=== PATIENT | female | born 1940 | race Caucasian/White ===

== ENCOUNTER 2016-10-31 21:16 | Observation (INO) | payer OTHER ==
[~2016-10-31] VITALS: Ht 160 cm; Wt 74.8 kg
[~2016-10-31 21:16] MED LIST: APIX5TAB PO; CALC-316 PO; CARV25TA2 PO; CARV3.122 PO; CITA20TA5 PO; LEVO50TA PO; NICO1PAT21 TP; OMEG1CAP27 PO; OXYC10TA PO; OXYC10TA57 PO; OXYC15TA PO; OXYC30TA PO; POLY119P4 PO; [UNRECOGNIZED DRUG - CODE] IJ; [UNRECOGNIZED DRUG - CODE] PO
[2016-10-31] MEDS ORDERED: IV NORMAL SALINE 1000ML BAG 1,000 ML IV ONE (22:00)
[2016-10-31 22:08] LABS: BILIRUBIN,URINE NEGATIVE (NEG); GLUCOSE,URINE NEGATIVE (NEG); NITRITE,URINE NEGATIVE (NEG); PH,URINE 5.5; PROTEIN,URINE NEGATIVE (NEG-TRACE); UROBILINOGEN,URINE 0.2 mg/dL (0.2 mg/dL)
[2016-10-31 22:30] LABS: BASO % 1 % (0-3); EOS % 4 % (0-3); HEMATOCRIT 38.2 % (36.0-47.0); HEMOGLOBIN 12.4 g/dL (12.0-15.5); LYMPH # 2.2 x10^3/uL (1.0-4.8); LYMPH % 31 % (24-48); MEAN CORPUSCULAR HEMOGLOBIN 29 pg (25-35); MEAN CORPUSCULAR HGB CONC 33 g/dL (31-37); MEAN CORPUSCULAR VOLUME 88 fL (79-100); MONO % 9 % (0-9); NEUT % 55 % (31-73); PLATELET COUNT 147 x10^3/uL (140-400); RED BLOOD COUNT 4.33 x10^6/uL (3.50-5.40); RED CELL DISTRIBUTION WIDTH 15.4 % (11.5-14.5); WHITE BLOOD COUNT 7.2 x10^3/uL (4.0-11.0)
--- NOTE | 2016-10-31 22:37 | PHYS DOC ---
Past Medical History Past Medical History: A-Fib, COPD, UTI Additional Past Medical Histor: CHRONIC BACK PAIN Past Surgical History: Hysterectomy, Other Additional Past Surgical Histo: hernia Alcohol Use: None Drug Use: None Adult General Chief Complaint Chief Complaint: ALTERED MENTAL STATUS HPI HPI Patient is a 76 year old F who presents with altered mental status. Patient was brought in by her daughter who went over to her house around 3 PM this afternoon and she was altered with increased somnolence. Daughter states this happened before when she had a UTI and wear kidney function becomes elevated. Patient does take narcotic pain medication but has no history of overdosing is not suicidal. Daughter denies any fevers, nausea/vomiting/diarrhea. Pertinent exam findings: Somnolent but arousable, pupils are 2 mm bilaterally Heart was regular rhythm without any murmurs Lungs are clear to auscultation bilaterally without crackles wheeze or rales ED course: Patient was seen and examined CBC, CMP, UA, and urine drug screen CT scan of the head were ordered 2330: Patient was given 0.4 million of Narcan in which she started becoming more arousable 2340: Explain to the family that we'll admit her for altered mental status and the daughters comfortable this plan 2357: Discussed CC/HP/PMH with Dr. Silveira and recommends admit [] Urgent results: CBC unremarkable BUNs [address] scan of the head without contrast NAD MDM: After reviewing the chart, CC/HPI/PMH, physical exam, [lab results], [ radiological results], I do not believe the patient has acute intracranial process can chipping to her altered mental status. I've concerned that the patient's altered mental status could be secondary to her narcotic use at home since she responded fairly well to Narcan. Patient be admitted for observation and further evaluation. Review of Systems Review of Systems Unable to obtain a review of systems secondary to patient's clinical condition of altered mental status Current Medications Current Medications Current Medications Medications (Trade) Dose Ordered Sig/Kervin Start Time Stop Time Status Last Admin Dose Admin Naloxone HCl (Narcan) 0.4 mg 1X ONCE 10/31/16 23:30 10/31/16 23:31 DC 10/31/16 23:26 0.4 MG Sodium Chloride 1,000 ml @ 1,000 mls/hr 1X ONCE 10/31/16 22:00 10/31/16 22:59 DC 10/31/16 22:50 1,000 MLS/HR Allergies Allergies Allergies Coded Allergies Type Severity Reaction Last Updated Verified ciprofloxacin Allergy Intermediate 07/02/15 Yes codeine Allergy Intermediate 07/02/15 Yes Physical Exam Physical Exam GEN.: Somnolent but arousable HEENT: Head is normocephalic, atraumatic, he pulls were 2 mm bilaterally NECK: Supple. LUNGS: CTAB. HEART: RRR, S1, S2 present. Peripheral pulses intact ABDOMEN: Soft, nontender. Positive bowel sounds. EXTREMITIES: Without any cyanosis. NEUROLOGIC: Cranial nerves II through XII are grossly intact without any focal neurologic deficits PSYCHIATRIC: Confused SKIN: No ulcerations Current Patient Data Vital Signs Vital Signs Date Time Temp Pulse Resp B/P (MAP) Pulse Ox O2 Delivery O2 Flow Rate FiO2 10/31/16 21:33 97.5 75 22 117/64 (81) Room Air 97.5 Lab Values Laboratory Tests Test 10/31/16 21:55 10/31/16 22:16 Urine Collection Type Unknown Urine Color Yellow Urine Clarity Clear Urine pH 5.5 Urine Specific [place] 1.020 Urine Protein Negative mg/dL (NEG-TRACE) Urine Glucose (UA) Negative mg/dL (NEG) Urine Ketones (Stick) Negative mg/dL (NEG) Urine Blood Negative (NEG) Urine Nitrite Negative (NEG) Urine Bilirubin Negative (NEG) Urine Urobilinogen Dipstick 0.2 mg/dL (0.2 mg/dL) Urine Leukocyte Esterase Negative (NEG) Urine RBC Occ /HPF (0-2) Urine WBC Occ /HPF (0-4) Urine Squamous Epithelial Cells Many /LPF Urine Bacteria Few /HPF (0-FEW) Urine Hyaline Casts Moderate /HPF Urine Opiates Screen Pos (NEG) Urine Methadone Screen Neg (NEG) Urine Barbiturates Neg (NEG) Urine Phencyclidine Screen Neg (NEG) Urine Amphetamine/Methamphetamine Neg (NEG) Urine Benzodiazepines Screen Neg (NEG) Urine Cocaine Screen Neg (NEG) Urine Cannabinoids Screen Neg (NEG) Urine Ethyl Alcohol Neg (NEG) White Blood Count 7.2 x10^3/uL (4.0-11.0) Red Blood Count 4.33 x10^6/uL (3.50-5.40) Hemoglobin 12.4 g/dL (12.0-15.5) Hematocrit 38.2 % (36.0-47.0) Mean Corpuscular Volume 88 fL (79-100) Mean Corpuscular Hemoglobin 29 pg (25-35) Mean Corpuscular Hemoglobin Concent 33 g/dL (31-37) Red Cell Distribution Width 15.4 % (11.5-14.5) H Platelet Count 147 x10^3/uL (140-400) Neutrophils (%) (Auto) 55 % (31-73) Lymphocytes (%) (Auto) 31 % (24-48) Monocytes (%) (Auto) 9 % (0-9) Eosinophils (%) (Auto) 4 % (0-3) H Basophils (%) (Auto) 1 % (0-3) Neutrophils # (Auto) 4.0 x10^3uL (1.8-7.7) Lymphocytes # (Auto) 2.2 x10^3/uL (1.0-4.8) Monocytes # (Auto) 0.7 x10^3/uL (0.0-1.1) Eosinophils # (Auto) 0.3 x10^3/uL (0.0-0.7) Basophils # (Auto) 0.0 x10^3/uL (0.0-0.2) Sodium Level 142 mmol/L (136-145) Potassium Level 4.1 mmol/L (3.5-5.1) Chloride Level 105 mmol/L (98-107) Carbon Dioxide Level 27 mmol/L (21-32) Anion Gap 10 (6-14) Blood Urea Nitrogen 39 mg/dL (7-20) H Creatinine 1.4 mg/dL (0.6-1.0) H Estimated GFR (Cockcroft-Gault) 36.8 BUN/Creatinine Ratio 28 (6-20) H Glucose Level 103 mg/dL (70-99) H Lactic Acid Level 0.9 mmol/L (0.4-2.0) Calcium Level 8.6 mg/dL (8.5-10.1) Total Bilirubin 0.3 mg/dL (0.2-1.0) Aspartate Amino Transferase (AST) 22 U/L (15-37) Alanine Aminotransferase (ALT) 19 U/L (14-59) Alkaline Phosphatase 69 U/L (46-116) Troponin I Quantitative < 0.017 ng/mL (0.000-0.055) Total Protein 7.0 g/dL (6.4-8.2) Albumin 3.6 g/dL (3.4-5.0) Albumin/Globulin Ratio 1.1 (1.0-1.7) Lipase 57 U/L (73-393) L Ethyl Alcohol Level < 10 mg/dL (0-10) Laboratory Tests 10/31/16 22:16 Laboratory Tests 10/31/16 22:16 EKG EKG EKG shows normal sinus rhythm rate of 71 no STEMI [] Radiology/Procedures Radiology/Procedures CT scan ahead without contrast NAD[] Course & Med Decision Making Course & Med Decision Making Pertinent Labs and Imaging studies reviewed. (See chart for details) [] Dragon Disclaimer Dragon Disclaimer This electronic medical record was generated, in whole or in part, using a voice recognition dictation system. Departure Departure Impression: Primary Impression: Altered mental status Additional Impression: Accidental overdose Disposition: 09 ADMITTED INPATIENT Admitting Physician: Rm Silveira Condition: STABLE Referrals: MERCED ALONZO MD (PCP) Problem Qualifiers Primary Impression: Altered mental status Altered mental status type: somnolence Qualified Codes: R40.0 - Somnolence Additional Impression: Accidental overdose Encounter type: initial encounter Qualified Codes: T50.901A - Poisoning by unspecified drugs, medicaments and biological substances, accidental ( unintentional), initial encounter ANJU ANGEL DO Oct 31, 2016 22:37
--- NOTE | 2016-10-31 22:44 | RAD ---
CT HEAD PQRS STATEMENT: One or more of the following in the visualized dose reduction techniques were utilized for this study: 1. Automatic exposure control, 2. Adjustment of the mA and/or kV according to patient size, 3. Use of iterative reconstruction technique INDICATION: AMS, PRIOR SENT COMPARISON: 02/02/2016 TECHNIQUE: 5 mm contiguous axial images were obtained from the skull base to the vertex in both bone and soft tissue algorithm. FINDINGS: No abnormal attenuation within the brain parenchyma. No evidence of intracranial hemorrhage. No extra-axial fluid collections. No mass effect or midline shift. Ventricular size is appropriate. Basal cisterns are patent. No fractures identified.Jones-white differentiation is preserved.Globes and orbits are within normal limits. Paranasal sinuses and mastoid air cells are clear. IMPRESSION: No acute intracranial abnormality. Electronically signed by: Jarocho Lockwood MD (10/31/2016 10:41 PM)
[2016-10-31 22:46] LABS: CALCIUM 8.6 mg/dL (8.5-10.1); CREATININE 1.4 mg/dL (0.6-1.0); GFR 36.8; POTASSIUM 4.1 mmol/L (3.5-5.1)
[2016-10-31 22:47] LABS: RBC,URINE OCC /HPF (0-2); WBC,URINE OCC /HPF (0-4)
[2016-10-31 22:48] LABS: BACTERIA,URINE FEW /HPF (0-FEW); SQUAMOUS EPITHELIAL CELL,UR MANY /LPF
[2016-10-31 23:01] LABS: ALBUMIN 3.6 g/dL (3.4-5.0); ALBUMIN/GLOBULIN RATIO 1.1 (1.0-1.7); TOTAL BILIRUBIN 0.3 mg/dL (0.2-1.0)
[2016-10-31 23:01] LABS: BARBITURATES NEG (NEG); BENZODIAZEPINES NEG (NEG); CANNABINOIDS NEG (NEG); COCAINE NEG (NEG); METHADONE NEG (NEG); OPIATES POS (NEG); PHENCYCLIDINE NEG (NEG)
[2016-10-31] MEDS ORDERED: NALOXONE 0.4 MG/ML VIAL. IV ONE (23:30)
[2016-11-01] VITALS (7 sets, daily range): BP systolic 116–149; BP diastolic 55–77
[2016-11-01] MEDS: IV NORMAL SALINE 1000ML BAG 1,000 ML IV SCH ×3 (01:52→17:52)
[2016-11-01] MEDS ORDERED: ONDANSETRON PF 4 MG/2 ML VIAL. IV PRN (02:00)
--- NOTE | 2016-11-01 08:19 | PDOC ---
GENERAL General: see dictated H&P. Problems: VITAL SIGNS Vital Signs: Vital Signs Date Time Temp Pulse Resp B/P (MAP) Pulse Ox O2 Delivery O2 Flow Rate FiO2 11/01/16 07:33 97.9 70 20 116/58 (77) 94 Room Air 97.9 11/01/16 03:14 2.0 I & O I & O Intake and Output 11/01/16 07:00 Intake Total 120 ml Balance 120 ml Intake Oral 120 ml ALLERGIES Allergies: Allergies Coded Allergies Type Severity Reaction Last Updated Verified ciprofloxacin Allergy Intermediate 07/02/15 Yes codeine Allergy Intermediate 07/02/15 Yes MEDS Medications: Current Medications Medications (Trade) Dose Ordered Sig/Kervin Start Time Stop Time Status Last Admin Dose Admin Acetaminophen (Tylenol) 650 mg PRN Q4HRS PRN 11/01/16 02:00 11/02/16 01:59 Naloxone HCl (Narcan) 0.4 mg 1X ONCE 10/31/16 23:30 10/31/16 23:31 DC 10/31/16 23:26 0.4 MG Ondansetron HCl (Zofran) 4 mg PRN Q8HRS PRN 11/01/16 02:00 11/02/16 01:59 Sodium Chloride 1,000 ml @ 125 mls/hr Q8H 11/01/16 01:52 11/02/16 01:51 11/01/16 01:52 125 MLS/HR LAB Lab: Laboratory Tests Test 10/31/16 21:55 10/31/16 22:16 Urine Collection Type Unknown Urine Color Yellow Urine Clarity Clear Urine pH 5.5 Urine Specific [place] 1.020 Urine Protein Negative mg/dL (NEG-TRACE) Urine Glucose (UA) Negative mg/dL (NEG) Urine Ketones (Stick) Negative mg/dL (NEG) Urine Blood Negative (NEG) Urine Nitrite Negative (NEG) Urine Bilirubin Negative (NEG) Urine Urobilinogen Dipstick 0.2 mg/dL (0.2 mg/dL) Urine Leukocyte Esterase Negative (NEG) Urine RBC Occ /HPF (0-2) Urine WBC Occ /HPF (0-4) Urine Squamous Epithelial Cells Many /LPF Urine Bacteria Few /HPF (0-FEW) Urine Hyaline Casts Moderate /HPF Urine Opiates Screen Pos (NEG) Urine Methadone Screen Neg (NEG) Urine Barbiturates Neg (NEG) Urine Phencyclidine Screen Neg (NEG) Urine Amphetamine/Methamphetamine Neg (NEG) Urine Benzodiazepines Screen Neg (NEG) Urine Cocaine Screen Neg (NEG) Urine Cannabinoids Screen Neg (NEG) Urine Ethyl Alcohol Neg (NEG) White Blood Count 7.2 x10^3/uL (4.0-11.0) Red Blood Count 4.33 x10^6/uL (3.50-5.40) Hemoglobin 12.4 g/dL (12.0-15.5) Hematocrit 38.2 % (36.0-47.0) Mean Corpuscular Volume 88 fL (79-100) Mean Corpuscular Hemoglobin 29 pg (25-35) Mean Corpuscular Hemoglobin Concent 33 g/dL (31-37) Red Cell Distribution Width 15.4 % (11.5-14.5) Platelet Count 147 x10^3/uL (140-400) Neutrophils (%) (Auto) 55 % (31-73) Lymphocytes (%) (Auto) 31 % (24-48) Monocytes (%) (Auto) 9 % (0-9) Eosinophils (%) (Auto) 4 % (0-3) Basophils (%) (Auto) 1 % (0-3) Neutrophils # (Auto) 4.0 x10^3uL (1.8-7.7) Lymphocytes # (Auto) 2.2 x10^3/uL (1.0-4.8) Monocytes # (Auto) 0.7 x10^3/uL (0.0-1.1) Eosinophils # (Auto) 0.3 x10^3/uL (0.0-0.7) Basophils # (Auto) 0.0 x10^3/uL (0.0-0.2) Sodium Level 142 mmol/L (136-145) Potassium Level 4.1 mmol/L (3.5-5.1) Chloride Level 105 mmol/L (98-107) Carbon Dioxide Level 27 mmol/L (21-32) Anion Gap 10 (6-14) Blood Urea Nitrogen 39 mg/dL (7-20) Creatinine 1.4 mg/dL (0.6-1.0) Estimated GFR (Cockcroft-Gault) 36.8 BUN/Creatinine Ratio 28 (6-20) Glucose Level 103 mg/dL (70-99) Lactic Acid Level 0.9 mmol/L (0.4-2.0) Calcium Level 8.6 mg/dL (8.5-10.1) Total Bilirubin 0.3 mg/dL (0.2-1.0) Aspartate Amino Transf (AST/SGOT) 22 U/L (15-37) Alanine Aminotransferase (ALT/SGPT) 19 U/L (14-59) Alkaline Phosphatase 69 U/L (46-116) Troponin I Quantitative < 0.017 ng/mL (0.000-0.055) Total Protein 7.0 g/dL (6.4-8.2) Albumin 3.6 g/dL (3.4-5.0) Albumin/Globulin Ratio 1.1 (1.0-1.7) Lipase 57 U/L (73-393) Ethyl Alcohol Level < 10 mg/dL (0-10) ROMÁN EDWARDS MD Nov 01, 2016 08:19
[2016-11-01 09:00] LABS: PH ABG 7.39 (7.35-7.45)
[2016-11-01 09:01] LABS: FIO2 ABG 28; HCO3 ABG 24 mmol/L (21-28); PCO2 ABG 41 mmHg (35-46); PO2 ABG 113 mmHg (65-108)
--- NOTE | 2016-11-01 09:01 | ACF ---
Admit Criteria Forms Admit Criteria Forms Admit Criteria Forms MENTAL STATUS CHANGE Clinical Indications for Inpatient Care (Place 'X' for any and all applicable criteria): Ongoing inpatient care may be needed for 1 or more of the following(1)(2)(3)(5)( 6): [ ]I. Suspected serious etiology (eg, medical disorder, [employer] event) of altered mental status [ ]II. Danger to self or others not manageable at lower level of care [ ]III. Grave disability (eg, inability to perform self care necessary at lower level of care) [ ]IV. Agitation or inappropriate behavior interfering with care for primary condition (eg, attempting to discontinue lines or drains prematurely, unable to cooperate with respiratory care) [ ]V. Delirium [A] [D][E] as described by 1 or more of the following(26): [ ]a) Delirium due to alcohol or sedative [F] withdrawal [ ]b) Delirium of uncertain etiology that has not responded to appropriate empiric treatment [ ]c) Delirium that prevents performance of a life-sustaining function (eg, feeding or hydrating oneself) [X]. General contraindications and/or Inappropriate clinical situations for Observational Care in patients with Mental Status Change, when ANY ONE of the following is required: [X]a) Prediction of prolongation of LOS based on ANY ONE of the following may be considered as a contraindication for observational care 2, 3, 4, 5, 6, 7, 8, 9, 10, 11 [X]i) Age > 65 yrs. [ ]ii) Patient arriving by ambulance [ ]iii) Patient with high acuity [X]iv) Patient requiring vital sign monitoring [ ]v) Patient on IV medication [ ]b) Systolic blood pressures greater than or equal to 180mmHg 3, 12 [ ]c) Patient with altered mental status including delirium and other alteration of consciousness, (3) [ ]d) Patient whose discharge disposition will be to a usp home or rehabilitation home should not be managed in Emergency Department Observation Unit. CMS rule requires 3 days hospital stay before such placement.3,13 [ ]e) Patient with failure to thrive due to broad array of etiologies 3,16,17 [ ]f) Inability to ambulate 3,14 Extended stay beyond goal length of stay for the primary condition may be needed until ALL of the following are present(3)(5): [ ]a) Underlying medical etiology of mental status change is absent, or has been established and adequately treated [ ]b) Danger to self or others is absent or manageable at lower level of care. [ ]c) Behavior crisis management, including physical or chemical restraints, is not required or available at lower level of car [ ]d) Substance or alcohol withdrawal is absent or manageable at lower level of care. [ ]e) Behavioral symptoms (eg, agitation, somnolence, inappropriate behavior) are absent, or are manageable at lower level of care. The original [facility] [employer] content created by [facility] has been revised. The portions of the content which have been revised are identified through the use of italic text or in bold, and [facility] has neither reviewed nor approved the modified material. All other unmodified content is copyright [facility]. Please see references footnoted in the original [facility] [employer] edition 2016 YOMI KEBEDE Nov 01, 2016 09:01
[2016-11-01] MEDS ORDERED: POLYETHYLENE GLYCOL 3350 17 GM PACKET. PO PRN (12:30)
--- NOTE | 2016-11-01 16:28 | PDOC2 ---
NEUROLOGY CONSULT Date of Admission Date of Admission DATE: 11/01/16 TIME: 16:19 Reason for Consult Reason for Consult: IMPRESSION: Confusion. Metabolic encephalopathy. AFib COPD UTI Back pain. Other medical diseases. RECOMMENDATIONS/PLAN: EEG Lab: see orders. Avoid narcotics as possible. HCT: No acute findings. HISTORY OF THE PRESENT ILLNESS: 76-y-old female patient with above medical disease was brought to the ER of [facility] on 10/31/16 after noted mental status changes and sleepiness and not response to her daughter. Her son stated that his mother has been sleeping on daytime more than before. The patient stated that she knew her daughter was checking on her but she was so sleeping so she did not want to respond. No focalized sensory or motor deficits noted. PAST MEDICAL HISTORY: Please see above. PAST SURGERY HISTORY: Hysterectomy Hernia Repair ALLERGY: Reviewed. MEDICATIONS: Refer to [facility] FAMILY HISTORY: Non contributory. SOCIAL HISTORY: Lives at home. Denies smoking, drinking, and illicit drug use. REVIEW OF SYSTEMS: Constitutional: No malnutrition, or cachexia. Head: No recent traumatic brain or head injury. Skin: No edema, or rash. Ear: No infection, tinnitus. Eyes: No vision loss or color blindness. Nose: No bleeding or purulent discharges. Hearing: No hearing decrease. Neck: No injury. Breast: No history of cancer, masses,or discharges. Cardiac: AFib. Pulmonary: COPD. GI: No GI ulcer, GI bleeding. Urinary/genital: UTI. Endocrinologic: No cousin face, craniofacial dysmorphism, polydactyly. Skeletomuscular: No muscular atrophy, deformity. Neurological: see HP. Psychiatric: Denies drug use/abuse. Otherwise, not [id number] review of systems. PHYSICAL EXAMINATION: General appearance is in no acute distress. HEENT: Normocephalic and nontraumatic. Eyes, nose, ears, and throat are unremarkable. Neck is supple. No lymphadenopathy. No bruits are heard over the carotid artery. No crepitus. Cardiovascular: S1, S2, regular rate and rhythm. Pulmonary: Clear to auscultation bilaterally. Abdomen: Bowel sounds are positive. Abdomen is soft, nontender, and nondistended. Extremities: No rash, lesions, or edema. No restriction of range of motion NEUROLOGICAL EXAMINATION: Awake. Oriented to place and person. PERRL. EOMI. CN: no focal findings. Muscle tone: within normal. Muscle strength: 5- DTR: 2 Plantar reflex: Neutral response bilaterally Gait: not examined in bed. Sensory exam: no abnormal findings. No cerebellar signs elicited. F-T-N test fine. Current Medications Current Medications Current Medications Sodium Chloride 1,000 ml @ 1,000 mls/hr 1X ONCE IV Last administered on 22:50; Start 10/31/16 at 22:00; Stop 10/31/16 at 22:59; Status DC Naloxone HCl (Narcan) 0.4 mg 1X ONCE IV Last administered on 10/31/16 23:26; Start 10/31/16 at 23:30; Stop 10/31/16 at 23:31; Status DC Ondansetron HCl (Zofran) 4 mg PRN Q8HRS PRN IV NAUSEA/VOMITING; Start 11/01/16 at 02:00; Stop 11/02/16 at 01:59 Sodium Chloride 1,000 ml @ 125 mls/hr Q8H IV Last administered on 11/01/16 01 :52; Start 11/01/16 at 01:52; Stop 11/02/16 at 01:51 Acetaminophen (Tylenol) 650 mg PRN Q4HRS PRN PO FEVER; Start 11/01/16 at 02:00 ; Stop 11/02/16 at 01:59 Polyethylene Glycol (miraLAX PACKET) 17 gm PRN DAILY PRN PO CONSTIPATION; Start 11/01/16 at 12:30 Active Scripts Active Miralax (Polyethylene Glycol 3350) 119 Gm Powder 17 Gm PO DAILY Reported NICODERM CQ 21mg (Nicotine) 1 Each Patch.td24 1 Patch TP DAILY Synthroid (Levothyroxine Sodium) 50 Mcg Tablet 1 Tab PO DAILY Oxycodone Hcl 15 Mg Tablet 15 Mg PO BID PRN NOT GIVEN ON THIS ADMISSION ONLY TAKE TWICE A DAY NEEDED FOR PAIN THAT THE MORPHINE DOES NOT CONTROL Carvedilol 3.125 Mg Tablet 1 Tab PO BID LAST DOSE GIVEN: DATE: Today at 12pm NEXT DOSE DUE: Tonight with dinner Calcarb 600 W-Vitamin D Tab (Calcium Carbonate/Vitamin D3) 1 Each Tablet 1 Each PO BID LAST DOSE GIVEN: DATE: Today at 08:30 NEXT DOSE DUE: tonight with dinner Eliquis (Apixaban) 5 Mg Tablet 5 Mg PO BID LAST DOSE GIVEN: DATE: Today at 12pm NEXT DOSE DUE: Tonight Fish Oil 1,000 Mg Softgel (Citra-3 Fatty Acids/Fish Oil) 1 Each Capsule 2 Each PO BID LAST DOSE GIVEN: This morning NEXT DOSE DUE: Take this evening Citalopram Hbr (Citalopram Hydrobromide) 20 Mg Tablet 20 Mg PO BID LAST DOSE GIVEN: This morning NEXT DOSE DUE: Tonight Allergies Allergies: Coded Allergies: ciprofloxacin (Verified Allergy, Intermediate, 07/02/15) codeine (Verified Allergy, Intermediate, 07/02/15) Patient on Oxycodone with no reaction. Reaction only to Codeine. Vitals VITALS Vital Signs Date Time Temp Pulse Resp B/P (MAP) Pulse Ox O2 Delivery O2 Flow Rate FiO2 11/01/16 14:51 97.1 65 20 128/70 (89) 97 Room Air 97.1 11/01/16 08:40 2.0 Labs Labs Laboratory Tests Test 10/31/16 21:55 10/31/16 22:16 11/01/16 08:45 11/01/16 13:35 Urine Collection Type Unknown Urine Color Yellow Urine Clarity Clear Urine pH 5.5 Urine Specific [place] 1.020 Urine Protein Negative mg/dL (NEG-TRACE) Urine Glucose (UA) Negative mg/dL (NEG) Urine Ketones (Stick) Negative mg/dL (NEG) Urine Blood Negative (NEG) Urine Nitrite Negative (NEG) Urine Bilirubin Negative (NEG) Urine Urobilinogen Dipstick 0.2 mg/dL (0.2 mg/dL) Urine Leukocyte Esterase Negative (NEG) Urine RBC Occ /HPF (0-2) Urine WBC Occ /HPF (0-4) Urine Squamous Epithelial Cells Many /LPF Urine Bacteria Few /HPF (0-FEW) Urine Hyaline Casts Moderate /HPF Urine Opiates Screen Pos (NEG) Urine Methadone Screen Neg (NEG) Urine Barbiturates Neg (NEG) Urine Phencyclidine Screen Neg (NEG) Urine Amphetamine/Methamphetamine Neg (NEG) Urine Benzodiazepines Screen Neg (NEG) Urine Cocaine Screen Neg (NEG) Urine Cannabinoids Screen Neg (NEG) Urine Ethyl Alcohol Neg (NEG) White Blood Count 7.2 x10^3/uL (4.0-11.0) Red Blood Count 4.33 x10^6/uL (3.50-5.40) Hemoglobin 12.4 g/dL (12.0-15.5) Hematocrit 38.2 % (36.0-47.0) Mean Corpuscular Volume 88 fL (79-100) Mean Corpuscular Hemoglobin 29 pg (25-35) Mean Corpuscular Hemoglobin Concent 33 g/dL (31-37) Red Cell Distribution Width 15.4 % (11.5-14.5) Platelet Count 147 x10^3/uL (140-400) Neutrophils (%) (Auto) 55 % (31-73) Lymphocytes (%) (Auto) 31 % (24-48) Monocytes (%) (Auto) 9 % (0-9) Eosinophils (%) (Auto) 4 % (0-3) Basophils (%) (Auto) 1 % (0-3) Neutrophils # (Auto) 4.0 x10^3uL (1.8-7.7) Lymphocytes # (Auto) 2.2 x10^3/uL (1.0-4.8) Monocytes # (Auto) 0.7 x10^3/uL (0.0-1.1) Eosinophils # (Auto) 0.3 x10^3/uL (0.0-0.7) Basophils # (Auto) 0.0 x10^3/uL (0.0-0.2) Sodium Level 142 mmol/L (136-145) Potassium Level 4.1 mmol/L (3.5-5.1) Chloride Level 105 mmol/L (98-107) Carbon Dioxide Level 27 mmol/L (21-32) Anion Gap 10 (6-14) Blood Urea Nitrogen 39 mg/dL (7-20) Creatinine 1.4 mg/dL (0.6-1.0) Estimated GFR (Cockcroft-Gault) 36.8 BUN/Creatinine Ratio 28 (6-20) Glucose Level 103 mg/dL (70-99) Lactic Acid Level 0.9 mmol/L (0.4-2.0) Calcium Level 8.6 mg/dL (8.5-10.1) Total Bilirubin 0.3 mg/dL (0.2-1.0) Aspartate Amino Transf (AST/SGOT) 22 U/L (15-37) Alanine Aminotransferase (ALT/SGPT) 19 U/L (14-59) Alkaline Phosphatase 69 U/L (46-116) Troponin I Quantitative < 0.017 ng/mL (0.000-0.055) Total Protein 7.0 g/dL (6.4-8.2) Albumin 3.6 g/dL (3.4-5.0) Albumin/Globulin Ratio 1.1 (1.0-1.7) Lipase 57 U/L (73-393) Ethyl Alcohol Level < 10 mg/dL (0-10) Arterial Blood pH 7.39 (7.35-7.45) Arterial Blood pCO2 at Patient Temp 41 mmHg (35-46) Arterial Blood pO2 at Patient Temp 113 mmHg (65-108) Arterial Blood HCO3 24 mmol/L (21-28) Arterial Blood Base Excess -1 mmol/L (-3-3) FiO2 28 Vitamin B12 Level 275 pg/mL (247-911) Thyroid Stimulating Hormone (TSH) 0.915 uIU/mL (0.358-3.74) Laboratory Tests Test 10/31/16 21:55 10/31/16 22:16 11/01/16 08:45 11/01/16 13:35 Urine Collection Type Unknown Urine Color Yellow Urine Clarity Clear Urine pH 5.5 Urine Specific [place] 1.020 Urine Protein Negative mg/dL (NEG-TRACE) Urine Glucose (UA) Negative mg/dL (NEG) Urine Ketones (Stick) Negative mg/dL (NEG) Urine Blood Negative (NEG) Urine Nitrite Negative (NEG) Urine Bilirubin Negative (NEG) Urine Urobilinogen Dipstick 0.2 mg/dL (0.2 mg/dL) Urine Leukocyte Esterase Negative (NEG) Urine RBC Occ /HPF (0-2) Urine WBC Occ /HPF (0-4) Urine Squamous Epithelial Cells Many /LPF Urine Bacteria Few /HPF (0-FEW) Urine Hyaline Casts Moderate /HPF Urine Opiates Screen Pos (NEG) Urine Methadone Screen Neg (NEG) Urine Barbiturates Neg (NEG) Urine Phencyclidine Screen Neg (NEG) Urine Amphetamine/Methamphetamine Neg (NEG) Urine Benzodiazepines Screen Neg (NEG) Urine Cocaine Screen Neg (NEG) Urine Cannabinoids Screen Neg (NEG) Urine Ethyl Alcohol Neg (NEG) White Blood Count 7.2 x10^3/uL (4.0-11.0) Red Blood Count 4.33 x10^6/uL (3.50-5.40) Hemoglobin 12.4 g/dL (12.0-15.5) Hematocrit 38.2 % (36.0-47.0) Mean Corpuscular Volume 88 fL (79-100) Mean Corpuscular Hemoglobin 29 pg (25-35) Mean Corpuscular Hemoglobin Concent 33 g/dL (31-37) Red Cell Distribution Width 15.4 % (11.5-14.5) Platelet Count 147 x10^3/uL (140-400) Neutrophils (%) (Auto) 55 % (31-73) Lymphocytes (%) (Auto) 31 % (24-48) Monocytes (%) (Auto) 9 % (0-9) Eosinophils (%) (Auto) 4 % (0-3) Basophils (%) (Auto) 1 % (0-3) Neutrophils # (Auto) 4.0 x10^3uL (1.8-7.7) Lymphocytes # (Auto) 2.2 x10^3/uL (1.0-4.8) Monocytes # (Auto) 0.7 x10^3/uL (0.0-1.1) Eosinophils # (Auto) 0.3 x10^3/uL (0.0-0.7) Basophils # (Auto) 0.0 x10^3/uL (0.0-0.2) Sodium Level 142 mmol/L (136-145) Potassium Level 4.1 mmol/L (3.5-5.1) Chloride Level 105 mmol/L (98-107) Carbon Dioxide Level 27 mmol/L (21-32) Anion Gap 10 (6-14) Blood Urea Nitrogen 39 mg/dL (7-20) Creatinine 1.4 mg/dL (0.6-1.0) Estimated GFR (Cockcroft-Gault) 36.8 BUN/Creatinine Ratio 28 (6-20) Glucose Level 103 mg/dL (70-99) Lactic Acid Level 0.9 mmol/L (0.4-2.0) Calcium Level 8.6 mg/dL (8.5-10.1) Total Bilirubin 0.3 mg/dL (0.2-1.0) Aspartate Amino Transf (AST/SGOT) 22 U/L (15-37) Alanine Aminotransferase (ALT/SGPT) 19 U/L (14-59) Alkaline Phosphatase 69 U/L (46-116) Troponin I Quantitative < 0.017 ng/mL (0.000-0.055) Total Protein 7.0 g/dL (6.4-8.2) Albumin 3.6 g/dL (3.4-5.0) Albumin/Globulin Ratio 1.1 (1.0-1.7) Lipase 57 U/L (73-393) Ethyl Alcohol Level < 10 mg/dL (0-10) Arterial Blood pH 7.39 (7.35-7.45) Arterial Blood pCO2 at Patient Temp 41 mmHg (35-46) Arterial Blood pO2 at Patient Temp 113 mmHg (65-108) Arterial Blood HCO3 24 mmol/L (21-28) Arterial Blood Base Excess -1 mmol/L (-3-3) FiO2 28 Vitamin B12 Level 275 pg/mL (247-911) Thyroid Stimulating Hormone (TSH) 0.915 uIU/mL (0.358-3.74) EUGENIO RODRIGUEZ MD Nov 01, 2016 16:28
[2016-11-01] MEDS: ACETAMINOPHEN 325 MG TABLET. PO PRN ×2 (18:13→23:01)
[2016-11-02 03:06] VITALS: BP 160/71
[2016-11-02 07:45] VITALS: BP 161/87
--- NOTE | 2016-11-02 08:10 | HP ---
ADMIT DATE: CHIEF COMPLAINT AND HISTORY OF PRESENT ILLNESS: This 76-year-old white female known to me from prior hospitalizations. She is primarily followed by Dr. Cheema in the office. She presented to the Emergency Room with altered mental status on the day of admission. Daughter ____ see her on the day of admission, found her with increased somnolence, not making sense, unable to ____ make her awake. The daughter related a prior episode with UTI being suggestive of similar symptoms. The patient is unable to provide history, but daughter has not seen any nausea, vomiting, diarrhea. Abuse of her home opiates, which she takes for pain. Mother has not been complaining of any urinary tract symptoms leading up to this or anorexia, shortness of breath, cough, etc. PAST MEDICAL HISTORY: Remarkable for severe COPD, UTIs, history of AFib. She has chronic back pain. PAST SURGICAL HISTORY: Including hysterectomy and hernia repair. ALLERGIES: INCLUDE CIPRO AND CODEINE. MEDICATIONS: Brought with the patient, listed on the computer and have been addressed. SOCIAL HISTORY: She is a smoker, nondrinker. Does not abuse drugs. FAMILY HISTORY: Noncontributory. REVIEW OF SYSTEMS: That as mentioned above, which is unobtainable from her due to her depressed mental status and encephalopathy at the time of examination. PHYSICAL EXAMINATION: GENERAL: She is a well-developed, well-nourished white female appearing older than her stated age. She is sleepy throughout the exam. I cannot get her to wake up ____ respond meaningfully. VITAL SIGNS: Stable. She is afebrile. HEENT: Unremarkable. NECK: Supple without bruit, thyromegaly. CHEST: Reveals decreased breath sounds, but clear. HEART: Regular rate and rhythm without S3, S4 or murmur. ABDOMEN: Soft, nontender, without hepatosplenomegaly or mass. EXTREMITIES: Without cyanosis, clubbing or edema. NEUROLOGIC: Remarkable for the depressed mental status only. LABORATORY DATA: Today includes arterial blood gas that has a pCO2 of 41 and a pO2 113. Her CBC is essentially within normal limits. Blood chemistry reveals a creatinine of 1.4. Troponin is negative. TSH is normal. B12 is normal. Lactic acid is normal. Toxicology screen shows her opiates, which she takes at home and urine is not suggestive of a urinary tract infection. IMPRESSION: Encephalopathy, likely metabolic with confusion of uncertain etiology at this point in time. PLAN: The patient has been admitted. Neurology will be asked for any suggestions they have in further working this up and the patient will be monitored, managed and treated appropriately. ROMÁN EDWARDS MD DR: DONNIE/esthela JOB#: [id number] / [id number]
--- NOTE | 2016-11-02 08:37 | PDOC ---
GENERAL General: vss and afebrile. awake and alert this am. complaining primarily of back pain exam stable other than resolution of encephalopathy and not sure as to causation to date. will begin to mobilize and restart home meds with dc soon if remains alert as she is now. Problems: VITAL SIGNS Vital Signs: Vital Signs Date Time Temp Pulse Resp B/P (MAP) Pulse Ox O2 Delivery O2 Flow Rate FiO2 11/02/16 07:45 97.5 57 16 161/87 (111) 96 Nasal Cannula 2.0 97.5 I & O I & O Intake and Output 11/02/16 07:00 Intake Total 2300 ml Balance 2300 ml Intake Oral 800 ml IV Total 1500 ml # Voids 5 ALLERGIES Allergies: Allergies Coded Allergies Type Severity Reaction Last Updated Verified ciprofloxacin Allergy Intermediate 07/02/15 Yes codeine Allergy Intermediate 07/02/15 Yes MEDS Medications: Current Medications Medications (Trade) Dose Ordered Sig/Kervin Start Time Stop Time Status Last Admin Dose Admin Acetaminophen (Tylenol) 650 mg PRN Q4HRS PRN 11/01/16 02:00 11/02/16 01:59 DC 11/01/16 23:01 650 MG Naloxone HCl (Narcan) 0.4 mg 1X ONCE 10/31/16 23:30 10/31/16 23:31 DC 10/31/16 23:26 0.4 MG Ondansetron HCl (Zofran) 4 mg PRN Q8HRS PRN 11/01/16 02:00 11/02/16 01:59 DC Polyethylene Glycol (miraLAX PACKET) 17 gm PRN DAILY PRN 11/01/16 12:30 11/01/16 18:08 17 GM Sodium Chloride 1,000 ml @ 125 mls/hr Q8H 11/01/16 01:52 11/02/16 01:51 DC 11/01/16 17:52 125 MLS/HR LAB Lab: Laboratory Tests Test 11/01/16 08:45 11/01/16 13:35 Arterial Blood pH 7.39 (7.35-7.45) Arterial Blood pCO2 at Patient Temp 41 mmHg (35-46) Arterial Blood pO2 at Patient Temp 113 mmHg (65-108) Arterial Blood HCO3 24 mmol/L (21-28) Arterial Blood Base Excess -1 mmol/L (-3-3) FiO2 28 Vitamin B12 Level 275 pg/mL (247-911) Thyroid Stimulating Hormone (TSH) 0.915 uIU/mL (0.358-3.74) ROMÁN EDWARDS MD Nov 02, 2016 08:37
--- NOTE | 2016-11-02 08:53 | EKG ---
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
[2016-11-02] MEDS: NICOTINE 21MG PATCH. TD SCH (09:00)
[2016-11-02] MEDS: POLYETHYLENE GLYCOL 3350 17 GM PACKET. PO SCH (09:08)
[2016-11-02] MEDS: CARVEDILOL 3.125 MG TABLET. PO SCH ×2 (09:10→17:41)
[2016-11-02] MEDS: CITALOPRAM 20 MG TABLET. PO SCH ×2 (09:10→20:54)
[2016-11-02] MEDS: LEVOTHYROXINE 50 MCG TABLET PO SCH (09:11)
[2016-11-02] MEDS: oxyCODONE IR 5 MG TABLET PO PRN ×2 (09:11→20:56)
[2016-11-02] MEDS: CALCIUM CARBONATE 500 MG TABLET PO SCH ×2 (09:11→17:41)
[2016-11-02] MEDS: OMEGA-3 FATTY ACIDS/FISH OIL 1,000 MG CAPSULE. PO SCH ×2 (09:11→20:54)
[2016-11-02] MEDS: APIXABAN 5 MG TABLET. PO SCH ×2 (09:12→20:54)
[2016-11-02 09:50] LABS: SAT O2 ABG 98 % (92-99)
[2016-11-02 10:43] VITALS: BP 123/62
[2016-11-02] MEDS: ACETAMINOPHEN 325 MG TABLET. PO PRN ×2 (11:43→17:40)
[2016-11-02 14:38] VITALS: BP 148/79
--- NOTE | 2016-11-02 16:19 | PDOC ---
PROGRESS NOTES Assessment Assessment Confusion. Metabolic encephalopathy. AFib COPD UTI Back pain. Other medical diseases. RECOMMENDATIONS/PLAN: Avoid narcotics as possible. Treat medical diseases. OT/PT. HCT: No acute findings. HISTORY OF THE PRESENT ILLNESS: 76-y-old female patient with above medical disease was brought to the ER of [facility] on 10/31/16 after noted mental status changes and sleepiness and not response to her daughter. Her son stated that his mother has been sleeping on daytime more than before. The patient stated that she knew her daughter was checking on her but she was so sleeping so she did not want to respond. No focalized sensory or motor deficits noted. PAST MEDICAL HISTORY: Please see above. PAST SURGERY HISTORY: Hysterectomy Hernia Repair ALLERGY: Reviewed. MEDICATIONS: Refer to [facility] FAMILY HISTORY: Non contributory. SOCIAL HISTORY: Lives at home. Denies smoking, drinking, and illicit drug use. REVIEW OF SYSTEMS: Constitutional: No malnutrition, or cachexia. Head: No recent traumatic brain or head injury. Skin: No edema, or rash. Ear: No infection, tinnitus. Eyes: No vision loss or color blindness. Nose: No bleeding or purulent discharges. Hearing: No hearing decrease. Neck: No injury. Breast: No history of cancer, masses,or discharges. Cardiac: AFib. Pulmonary: COPD. GI: No GI ulcer, GI bleeding. Urinary/genital: UTI. Endocrinologic: No cousin face, craniofacial dysmorphism, polydactyly. Skeletomuscular: No muscular atrophy, deformity. Neurological: see HP. Psychiatric: Denies drug use/abuse. Otherwise, not [id number] review of systems. PHYSICAL EXAMINATION: General appearance is in no acute distress. HEENT: Normocephalic and nontraumatic. Eyes, nose, ears, and throat are unremarkable. Neck is supple. No lymphadenopathy. No bruits are heard over the carotid artery. No crepitus. Cardiovascular: S1, S2, regular rate and rhythm. Pulmonary: Clear to auscultation bilaterally. Abdomen: Bowel sounds are positive. Abdomen is soft, nontender, and nondistended. Extremities: No rash, lesions, or edema. No restriction of range of motion NEUROLOGICAL EXAMINATION: Awake. Sitting in chair. Oriented partially to time and fully to place and person. PERRL. EOMI. CN: no focal findings. Muscle tone: within normal. Muscle strength: 5- DTR: 2 Plantar reflex: Neutral response bilaterally Gait: not examined in chair. Sensory exam: no abnormal findings. No cerebellar signs elicited. F-T-N test fine. Objective Objective Vital Signs Date Time Temp Pulse Resp B/P (MAP) Pulse Ox O2 Delivery O2 Flow Rate FiO2 11/02/16 14:38 97.7 68 18 148/79 (102) 99 Nasal Cannula 2.0 97.7 Intake and Output 11/02/16 07:00 Intake Total 2300 ml Balance 2300 ml Intake Oral 800 ml IV Total 1500 ml # Voids 5 Vitals Signs Vitals VS - Last 72 Hours, by Label Date Time Temp Pulse Resp B/P (MAP) Pulse Ox O2 Delivery O2 Flow Rate FiO2 11/02/16 14:38 97.7 68 18 148/79 (102) 99 Nasal Cannula 2.0 97.7 11/02/16 10:43 97.7 54 18 123/62 (82) 97 Nasal Cannula 2.0 97.7 11/02/16 10:15 Nasal Cannula 2.0 11/02/16 09:11 Nasal Cannula 2.0 11/02/16 09:10 64 161/87 11/02/16 07:55 Nasal Cannula 2.0 11/02/16 07:45 97.5 57 16 161/87 (111) 96 Nasal Cannula 2.0 97.5 11/02/16 03:06 97.5 71 20 160/71 (100) 96 Nasal Cannula 2.0 97.5 11/01/16 23:15 97.9 60 18 147/77 (100) 95 Nasal Cannula 2.0 97.9 11/01/16 20:05 Nasal Cannula 2.0 11/01/16 19:15 97.7 71 16 149/59 (89) 94 Nasal Cannula 2.0 97.7 11/01/16 14:51 97.1 65 20 128/70 (89) 97 Room Air 97.1 11/01/16 10:49 97.3 58 20 116/58 (77) 93 Room Air 97.3 11/01/16 08:40 Simple Mask 2.0 11/01/16 07:55 Room Air 2.0 11/01/16 07:33 97.9 70 20 116/58 (77) 94 Room Air 97.9 Laboratory Laboratory Microbiology 10/31/16 Blood Culture - Preliminary, Resulted NO GROWTH AFTER 1 DAY Medication Medications Current Medications Acetaminophen (Tylenol) 650 mg PRN Q6HRS PRN PO MILD PAIN / TEMP Last administered on 11/02/16 11:43; Start 11/02/16 at 11:15 Apixaban (Eliquis) 5 mg BID PO Last administered on 11/02/16 09:12; Start at 09:00 Calcium Carbonate/ Glycine (Oscal) 500 mg BIDAFTMEAL PO Last administered on 09:11; Start 11/02/16 at 09:00 Carvedilol (Coreg) 3.125 mg BIDWMEALS PO Last administered on 11/02/16 09:10; Start 11/02/16 at 09:00 Citalopram Hydrobromide (CeleXA) 20 mg BID PO Last administered on 11/02/16 09 :10; Start 11/02/16 at 09:00 Fish Oil (Fish Oil) 2,000 mg BID PO Last administered on 11/02/16 09:11; Start 11/02/16 at 09:00 Levothyroxine Sodium (Synthroid) 50 mcg DAILY07 PO Last administered on 09:11; Start 11/02/16 at 09:00 Nicotine (Nicoderm Cq 21mg) 1 patch DAILY TD ; Start 11/02/16 at 09:00 Oxycodone HCl (Roxicodone) 15 mg PRN BID PRN PO PAIN Last administered on 09:11; Start 11/02/16 at 09:00 Polyethylene Glycol (miraLAX PACKET) 17 gm DAILY PO Last administered on 09:08; Start 11/02/16 at 09:00 Comment Review of Relevant I have reviewed the following items jesusita (where applicable) has been applied. EUGENIO RODRIGUEZ MD Nov 02, 2016 16:19
[2016-11-02 19:00] VITALS: BP 116/68
[2016-11-02] MEDS ORDERED: [UNRECOGNIZED DRUG - CODE] PO (20:23)
[2016-11-02] MEDS ORDERED: OXYC15TA PO (20:23)
[2016-11-02] MEDS ORDERED: MORP100T30 PO (20:23)
[2016-11-02] MEDS ORDERED: oxyCODONE IR 5 MG TABLET PO PRN (21:15)
[2016-11-02] MEDS ORDERED: MORPHINE ER 15 MG TABLET.ER PO SCH (21:15)
[2016-11-02] MEDS: MORPHINE ER 30 MG TABLET.ER PO SCH (21:42)
[2016-11-02 23:00] VITALS: BP 169/71
--- NOTE | 2016-11-02 23:35 | EEG ---
DATE OF SERVICE: 11/01/2016 EEG NUMBER: [id number] OBJECTIVE: This is a 76-year-old female patient with history of mental status changes and confusion. EEG was requested to help rule out seizure. METHODS: Twenty electrodes were applied according to the international 10-20 electrode placement system. EKG monitoring, hyperventilation, intermittent photic stimulation, monopolar and bipolar montages are routinely utilized. The record was obtained on a digital system with video monitoring. MEDICATIONS: No anti-seizure medication. FINDINGS: 1. Background: The patient was recorded in the awake, drowsy, and sleep states. The overall background amplitude is variable. No clear posterior dominant rhythm is observed. The overall background rhythm is with diffuse slowing in the theta and delta frequencies. 2. Abnormalities: No specific epileptiform discharge or electrographic seizure is seen. Diffuse slowing in theta and delta frequencies is throughout the entire recording. 3. Activation: Hyperventilation was not performed because the patient was unable to perform the technique. Intermittent photic stimulation was performed with photic driving. IMPRESSION: This EEG is an abnormal study for the awake, drowsy, and sleep states. No clear posterior dominant rhythm is observed. The overall background rhythm is with diffuse slowing in theta and delta frequencies. No focal, lateralizing, specific epileptiform discharge or electrographic seizure is seen. This pattern of EEG is suggestive of moderate encephalopathy. EUGENIO RODRIGUEZ MD DR: Napoleon JOB#: [id number] / [id number] WANG
[2016-11-03 03:00] VITALS: BP 155/71
[2016-11-03] MEDS: LEVOTHYROXINE 50 MCG TABLET PO SCH (06:29)
[2016-11-03 07:00] VITALS: BP 132/61
--- NOTE | 2016-11-03 08:20 | PDOC ---
GENERAL General: see discharge summary. Problems: VITAL SIGNS Vital Signs: Vital Signs Date Time Temp Pulse Resp B/P (MAP) Pulse Ox O2 Delivery O2 Flow Rate FiO2 11/03/16 03:00 98.0 56 18 155/71 (99) 99 Nasal Cannula 2.0 98.0 I & O I & O Intake and Output 11/03/16 07:00 Intake Total 360 ml Output Total 750 ml Balance -390 ml Intake Oral 360 ml Output Urine Total 750 ml # Voids 2 # Bowel Movements 1 ALLERGIES Allergies: Allergies Coded Allergies Type Severity Reaction Last Updated Verified ciprofloxacin Allergy Intermediate 07/02/15 Yes codeine Allergy Intermediate 07/02/15 Yes MEDS Medications: Current Medications Medications (Trade) Dose Ordered Sig/Kervin Start Time Stop Time Status Last Admin Dose Admin Acetaminophen (Tylenol) 650 mg PRN Q6HRS PRN 11/02/16 11:15 11/02/16 17:40 650 MG Apixaban (Eliquis) 5 mg BID 11/02/16 09:00 11/02/16 20:54 5 MG Calcium Carbonate/ Glycine (Oscal) 500 mg BIDAFTMEAL 11/02/16 09:00 11/02/16 17:41 500 MG Carvedilol (Coreg) 3.125 mg BIDWMEALS 11/02/16 09:00 11/02/16 17:41 3.125 MG Citalopram Hydrobromide (CeleXA) 20 mg BID 11/02/16 09:00 11/02/16 20:54 20 MG Fish Oil (Fish Oil) 2,000 mg BID 11/02/16 09:00 11/02/16 20:54 2,000 MG Levothyroxine Sodium (Synthroid) 50 mcg DAILY07 11/02/16 09:00 11/03/16 06:29 50 MCG Morphine Sulfate (Ms Contin) 90 mg BID 11/02/16 22:00 11/02/16 21:42 90 MG Naloxone HCl (Narcan) 0.4 mg 1X ONCE 10/31/16 23:30 10/31/16 23:31 DC 10/31/16 23:26 0.4 MG Nicotine (Nicoderm Cq 21mg) 1 patch DAILY 11/02/16 09:00 Ondansetron HCl (Zofran) 4 mg PRN Q8HRS PRN 11/01/16 02:00 11/02/16 01:59 DC Oxycodone HCl (Roxicodone) 15 mg PRN Q6HRS PRN 11/02/16 21:15 Polyethylene Glycol (miraLAX PACKET) 17 gm DAILY 11/02/16 09:00 11/02/16 09:08 17 GM Sodium Chloride 1,000 ml @ 125 mls/hr Q8H 11/01/16 01:52 11/02/16 01:51 DC 11/01/16 17:52 125 MLS/HR ROMÁN EDWARDS MD Nov 03, 2016 08:20
[2016-11-03] MEDS: NICOTINE 21MG PATCH. TD SCH (09:00)
[2016-11-03] MEDS: MORPHINE ER 30 MG TABLET.ER PO SCH (09:38)
[2016-11-03] MEDS: CARVEDILOL 3.125 MG TABLET. PO SCH (09:38)
[2016-11-03] MEDS: CALCIUM CARBONATE 500 MG TABLET PO SCH (09:38)
[2016-11-03] MEDS: APIXABAN 5 MG TABLET. PO SCH (09:38)
[2016-11-03] MEDS: CITALOPRAM 20 MG TABLET. PO SCH (09:39)
[2016-11-03] MEDS: POLYETHYLENE GLYCOL 3350 17 GM PACKET. PO SCH (09:43)
[2016-11-03] MEDS: OMEGA-3 FATTY ACIDS/FISH OIL 1,000 MG CAPSULE. PO SCH (09:44)
[2016-11-03] MEDS ORDERED: ANTI-COAG MONITOR BY PHARMACY. MC PRN (10:30)
[2016-11-03 11:00] VITALS: BP 114/60
[2016-11-03 15:00] VITALS: BP 120/55
--- NOTE | 2016-11-03 16:54 | PDOC ---
PROGRESS NOTES Assessment Assessment Confusion. Metabolic encephalopathy. AFib COPD UTI Back pain. Other medical diseases. RECOMMENDATIONS/PLAN: Avoid narcotics as possible. Treat medical diseases. OT/PT. FU with PCP. FU with Neurology as needed. HCT: No acute findings. EEG on 11/01/16 was in consistent with encephalopathy. HISTORY OF THE PRESENT ILLNESS: 76-y-old female patient with above medical disease was brought to the ER of [facility] on 10/31/16 after noted mental status changes and sleepiness and not response to her daughter. Her son stated that his mother has been sleeping on daytime more than before. The patient stated that she knew her daughter was checking on her but she was so sleeping so she did not want to respond. No focalized sensory or motor deficits noted. PAST MEDICAL HISTORY: Please see above. PAST SURGERY HISTORY: Hysterectomy Hernia Repair ALLERGY: Reviewed. MEDICATIONS: Refer to [facility] FAMILY HISTORY: Non contributory. SOCIAL HISTORY: Lives at home. Denies smoking, drinking, and illicit drug use. REVIEW OF SYSTEMS: Constitutional: No malnutrition, or cachexia. Head: No recent traumatic brain or head injury. Skin: No edema, or rash. Ear: No infection, tinnitus. Eyes: No vision loss or color blindness. Nose: No bleeding or purulent discharges. Hearing: No hearing decrease. Neck: No injury. Breast: No history of cancer, masses,or discharges. Cardiac: AFib. Pulmonary: COPD. GI: No GI ulcer, GI bleeding. Urinary/genital: UTI. Endocrinologic: No cousin face, craniofacial dysmorphism, polydactyly. Skeletomuscular: No muscular atrophy, deformity. Neurological: see HP. Psychiatric: Denies drug use/abuse. Otherwise, not [id number] review of systems. PHYSICAL EXAMINATION: General appearance is in no acute distress. HEENT: Normocephalic and nontraumatic. Eyes, nose, ears, and throat are unremarkable. Neck is supple. No lymphadenopathy. No bruits are heard over the carotid artery. No crepitus. Cardiovascular: S1, S2, regular rate and rhythm. Pulmonary: Clear to auscultation bilaterally. Abdomen: Bowel sounds are positive. Abdomen is soft, nontender, and nondistended. Extremities: No rash, lesions, or edema. No restriction of range of motion NEUROLOGICAL EXAMINATION: Awake. Sitting in chair. Oriented partially to time and fully to place and person. PERRL. EOMI. CN: no focal findings. Muscle tone: within normal. Muscle strength: 5- DTR: 2 Plantar reflex: Neutral response bilaterally Gait: not examined in chair. Sensory exam: no abnormal findings. No cerebellar signs elicited. F-T-N test fine. Objective Objective Vital Signs Date Time Temp Pulse Resp B/P (MAP) Pulse Ox O2 Delivery O2 Flow Rate FiO2 11/03/16 15:00 97.7 81 20 120/55 (76) 93 Room Air 97.7 11/03/16 11:10 2.0 Intake and Output 11/03/16 07:00 Intake Total 360 ml Output Total 750 ml Balance -390 ml Intake Oral 360 ml Output Urine Total 750 ml # Voids 2 # Bowel Movements 1 Vitals Signs Vitals VS - Last 72 Hours, by Label Date Time Temp Pulse Resp B/P (MAP) Pulse Ox O2 Delivery O2 Flow Rate FiO2 11/03/16 15:00 97.7 81 20 120/55 (76) 93 Room Air 97.7 11/03/16 13:48 93 Room Air 11/03/16 11:10 93 Nasal Cannula 2.0 11/03/16 11:00 98.1 55 20 114/60 (78) 97 Nasal Cannula 2.0 98.1 11/03/16 09:42 93 Nasal Cannula 2.0 11/03/16 09:38 93 Nasal Cannula 2.0 11/03/16 09:38 54 132/61 11/03/16 08:00 Nasal Cannula 2.0 11/03/16 07:00 97.5 54 20 132/61 (84) 93 Nasal Cannula 2.0 97.5 11/03/16 03:00 98.0 56 18 155/71 (99) 99 Nasal Cannula 2.0 98.0 11/03/16 01:42 16 2.0 11/02/16 23:00 98.5 59 18 169/71 (103) 98 Nasal Cannula 2.0 98.5 11/02/16 21:56 16 98 Nasal Cannula 2.0 11/02/16 21:42 16 99 Nasal Cannula 2.0 11/02/16 20:56 16 99 Nasal Cannula 2.0 11/02/16 20:00 Nasal Cannula 2.0 11/02/16 19:00 98.6 64 18 116/68 (84) 96 Nasal Cannula 2.0 98.6 11/02/16 17:41 68 148/79 11/02/16 14:38 97.7 68 18 148/79 (102) 99 Nasal Cannula 2.0 97.7 11/02/16 10:43 97.7 54 18 123/62 (82) 97 Nasal Cannula 2.0 97.7 11/02/16 09:11 Nasal Cannula 2.0 11/02/16 09:10 64 161/87 11/02/16 07:55 Nasal Cannula 2.0 11/02/16 07:45 97.5 57 16 161/87 (111) 96 Nasal Cannula 2.0 97.5 Laboratory Laboratory Microbiology 10/31/16 Blood Culture - Preliminary, Resulted NO GROWTH AFTER 2 DAYS Medication Medications Current Medications Info (Anti-Coagulation Monitoring By Pharmacy) 1 each PRN DAILY PRN MC SEE COMMENTS; Start 11/03/16 at 10:30; Stop 11/03/16 at 16:22; Status DC Morphine Sulfate (Ms Contin) 90 mg BID PO Last administered on 11/03/16 09:38 ; Start 11/02/16 at 22:00; Stop 11/03/16 at 16:22; Status DC Morphine Sulfate (Ms Contin) 100 mg BID PO ; Start 11/02/16 at 21:15; Stop 11/02 at 21:23; Status DC Oxycodone HCl (Roxicodone) 15 mg PRN Q6HRS PRN PO PAIN Last administered on 09:42; Start 11/02/16 at 21:15; Stop 11/03/16 at 16:22; Status DC Comment Review of Relevant I have reviewed the following items jesusita (where applicable) has been applied. EUGENIO RODRIGUEZ MD Nov 03, 2016 16:54
== END 2016-11-03 16:15 | disposition home health service (06) ==
LOC: ER 21:16 → 4 NORTH 23:51
PROVIDERS: ADMIT Family Medicine; ATTEND Family Medicine
DX: G93.41 Metabolic encephalopathy (principal); R41.0 Disorientation, unspecified; J44.9 Chronic obstructive pulmonary disease, unspecified; I48.91 Unspecified atrial fibrillation; G89.29 Other chronic pain; N39.0 Urinary tract infection, site not specified; M54.9 Dorsalgia, unspecified; F17.200 Nicotine dependence, unspecified, uncomplicated; Z90.710 Acquired absence of both cervix and uterus
CPT/HCPCS: 36415; 36600; 70450; 80053; 81001; 82607; 82805; 83605; 83690; 84443; 84484; 85027; 87040; 93005; 95816; 96361; 96374; 96375; 97162; 97166; 97535; 99285; 99406; G0378; G0480; G0481; J2310; J7030; G0379

== ENCOUNTER 2017-05-22 12:44 | Inpatient (IN) | payer OTHER ==
[2017-05-22 13:18] LABS: ADD MAN DIFF? NO
[2017-05-22 13:21] LABS: BILIRUBIN,URINE NEGATIVE (NEG); CLARITY,URINE CLEAR; COLOR,URINE YELLOW; GLUCOSE,URINE NEGATIVE (NEG); NITRITE,URINE POSITIVE (NEG); PH,URINE 5.5; PROTEIN,URINE 30 mg/dL (NEG-TRACE); UROBILINOGEN,URINE 0.2 mg/dL (0.2 mg/dL)
[2017-05-22 13:22] LABS: BASO % 1 % (0-3); EOS % 1 % (0-3); HEMATOCRIT 39.7 % (36.0-47.0); LYMPH # 0.6 x10^3/uL (1.0-4.8); LYMPH % 11 % (24-48); MEAN CORPUSCULAR HEMOGLOBIN 29 pg (25-35); MEAN CORPUSCULAR HGB CONC 33 g/dL (31-37); MEAN CORPUSCULAR VOLUME 88 fL (79-100); MONO % 20 % (0-9); NEUT # 3.5 x10^3uL (1.8-7.7); NEUT % 68 % (31-73); PLATELET COUNT 166 x10^3/uL (140-400); RED BLOOD COUNT 4.54 x10^6/uL (3.50-5.40); RED CELL DISTRIBUTION WIDTH 14.8 % (11.5-14.5); WHITE BLOOD COUNT 5.2 x10^3/uL (4.0-11.0)
[2017-05-22 13:28] LABS: BARBITURATES NEG (NEG); BENZODIAZEPINES NEG (NEG); CANNABINOIDS NEG (NEG); COCAINE NEG (NEG); METHADONE NEG (NEG); OPIATES POS (NEG); PHENCYCLIDINE NEG (NEG)
[2017-05-22 13:29] LABS: AMPHETAMINE/METHAMPHETAMINE NEG (NEG); ETHANOL, URINE NEG (NEG)
[2017-05-22 13:37] LABS: BACTERIA,URINE MODERATE /HPF (0-FEW); WBC,URINE >40 /HPF (0-4)
[2017-05-22] MEDS ORDERED: cefTRIAXone SODIUM 2 GM in IV DEXTROSE 5% 100 ML IV (13:46)
[2017-05-22 13:56] LABS: ANION GAP 10 (6-14); BLOOD UREA NITROGEN 26 mg/dL (7-20); BUN/CREATININE RATIO 17 (6-20); CALCIUM 8.8 mg/dL (8.5-10.1); CARBON DIOXIDE 28 mmol/L (21-32); CHLORIDE 102 mmol/L (98-107); CREATININE 1.5 mg/dL (0.6-1.0); GFR 33.9; GLUCOSE 136 mg/dL (70-99); POTASSIUM 3.8 mmol/L (3.5-5.1); SODIUM 140 mmol/L (136-145)
[2017-05-22 13:59] LABS: ACETAMIN < 2.0 mcg/ml (10-30); ETHANOL < 10 mg/dL (0-10); SALIC < 2.8 mg/dL (2.8-20.0)
[2017-05-22 14:03] LABS: ALBUMIN 3.6 g/dL (3.4-5.0); ALBUMIN/GLOBULIN RATIO 0.9 (1.0-1.7); ALK PHOS 54 U/L (46-116); ALT (SGPT) 23 U/L (14-59); AST (SGOT) 27 U/L (15-37); CREATINE KINASE 163 U/L (26-192); LIPASE 66 U/L (73-393); MAGNESIUM 1.9 mg/dL (1.8-2.4); TOTAL BILIRUBIN 0.3 mg/dL (0.2-1.0); TOTAL PROTEIN 7.6 g/dL (6.4-8.2)
[2017-05-22 14:08] LABS: NT-PRO BNP 1905 pg/mL (0-449)
[2017-05-22] MEDS: cefTRIAXone IV Push 2 GM VIAL. IVP (14:09)
[2017-05-22] MEDS: IV NORMAL SALINE 1000ML BAG 1,000 ML IV (14:09)
[2017-05-22 14:11] LABS: TROPONINI < 0.017 ng/mL (0.000-0.055)
[2017-05-22 14:22] LABS: INR 1.3 (0.8-1.1); PARTIAL THROMBOPLASTIN TIME 33 SEC (24-38); PROTHROMBIN TIME PATIENT 15.4 SEC (11.7-14.0)
[2017-05-22] MEDS: IPRATRPIUM/ALBUTEROL 0.5/2.5MG 3 ML NEBU. NEB (14:23)
[2017-05-22] MEDS ORDERED: ONDANSETRON PF 4 MG/2 ML VIAL. IV (14:45)
[2017-05-22] MEDS ORDERED: METHYL SALICYLATE/MENTHOL TOPICAL OINTMENT 29GM TUBE. TP (18:45)
[2017-05-22] MEDS: METHYL SALICYLATE/MENTHOL TOPICAL OINTMENT 29GM TUBE. TP (19:52)
[2017-05-22] MEDS: AZITHROMYCIN 500 MG in IV NORMAL SALINE 250ML 250 ML IV (19:53)
[2017-05-22] MEDS: LACTOBACILLUS RHAMNOSUS GG 1 CAPSULE. PO (20:03)
[2017-05-22] MEDS: SUCRALFATE 1 GM TABLET. PO (20:03)
[2017-05-22] MEDS: APIXABAN 5 MG TABLET. PO (20:03)
[2017-05-22] MEDS: OMEGA-3 FATTY ACIDS/FISH OIL 1,000 MG CAPSULE. PO (20:03)
[2017-05-22] MEDS ORDERED: NON FORMULARY ITEM (Melatonin 5 MG) PO (21:00)
[2017-05-23 04:16] LABS: BASO % 0 % (0-3); EOS % 0 % (0-3); HEMATOCRIT 37.4 % (36.0-47.0); HEMOGLOBIN 12.3 g/dL (12.0-15.5); LYMPH # 0.8 x10^3/uL (1.0-4.8); LYMPH % 24 % (24-48); MEAN CORPUSCULAR HEMOGLOBIN 29 pg (25-35); MEAN CORPUSCULAR HGB CONC 33 g/dL (31-37); MEAN CORPUSCULAR VOLUME 87 fL (79-100); MONO # 0.7 x10^3/uL (0.0-1.1); MONO % 20 % (0-9); NEUT # 1.9 x10^3uL (1.8-7.7); NEUT % 55 % (31-73); PLATELET COUNT 134 x10^3/uL (140-400); RED BLOOD COUNT 4.28 x10^6/uL (3.50-5.40); RED CELL DISTRIBUTION WIDTH 14.7 % (11.5-14.5); WHITE BLOOD COUNT 3.5 x10^3/uL (4.0-11.0)
[2017-05-23 04:19] LABS: ADD MAN DIFF? YES
[2017-05-23 04:34] LABS: ANION GAP 12 (6-14); BLOOD UREA NITROGEN 20 mg/dL (7-20); CARBON DIOXIDE 24 mmol/L (21-32); CHLORIDE 105 mmol/L (98-107); CREATININE 1.1 mg/dL (0.6-1.0); GFR 48.4; GLUCOSE 103 mg/dL (70-99); POTASSIUM 3.3 mmol/L (3.5-5.1); SODIUM 141 mmol/L (136-145)
[2017-05-23] MEDS: LEVOTHYROXINE 50 MCG TABLET PO (05:38)
[2017-05-23 10:47] LABS: % BANDS 10 % (0-9); % LYMPHS 17 % (24-48)
[2017-05-23 10:48] LABS: % MONOS 12 % (0-10); % SEGS 61 % (35-66); OVALOCYTES FEW; PLT ESTIMATE DECREASED (ADEQUATE)
[2017-05-23] MEDS: LINACLOTIDE 145 MCG CAPSULE. PO (10:57)
[2017-05-23] MEDS: OMEGA-3 FATTY ACIDS/FISH OIL 1,000 MG CAPSULE. PO ×2 (10:57→21:15)
[2017-05-23] MEDS: SUCRALFATE 1 GM TABLET. PO ×3 (10:57→21:11)
[2017-05-23] MEDS: LACTOBACILLUS RHAMNOSUS GG 1 CAPSULE. PO ×2 (10:57→21:10)
[2017-05-23] MEDS: FUROSEMIDE 40 MG TABLET. PO ×2 (10:57→13:28)
[2017-05-23] MEDS: CARVEDILOL 3.125 MG TABLET. PO ×3 (10:58→17:13)
[2017-05-23] MEDS: CALCIUM CARB/VIT D3 500/200 TABLET. PO ×2 (10:58→17:13)
[2017-05-23] MEDS: POLYETHYLENE GLYCOL 3350 17 GM PACKET. PO (10:58)
[2017-05-23] MEDS: APIXABAN 5 MG TABLET. PO ×2 (10:58→21:11)
[2017-05-23] MEDS: DULoxetine HCL 30 MG CAPSULE.DR PO (10:58)
[2017-05-23] MEDS: cefTRIAXone IV Push 2 GM VIAL. IVP (13:30)
[2017-05-23] MEDS: MORPHINE ER 30 MG TABLET.ER PO ×2 (14:01→23:02)
[2017-05-23] MEDS: AZITHROMYCIN 500 MG in IV NORMAL SALINE 250ML 250 ML IV (18:19)
[2017-05-23] MEDS ORDERED: cefTRIAXone SODIUM 2 GM in IV DEXTROSE 5% 100 ML IV (18:30)
[2017-05-23] MEDS: METHYL SALICYLATE/MENTHOL TOPICAL OINTMENT 29GM TUBE. TP (19:30)
[2017-05-23] MEDS ORDERED: MORPHINE ER 30 MG TABLET.ER PO (21:00)
[2017-05-24] MEDS: LEVOTHYROXINE 50 MCG TABLET PO (06:11)
[2017-05-24 06:29] LABS: INFLUENZA A PATIENT NEGATIVE (NEGATIVE)
[2017-05-24 06:31] LABS: INFLUENZA B PATIENT POSITIVE (NEGATIVE); OBC FLU VALID
[2017-05-24] MEDS: SUCRALFATE 1 GM TABLET. PO ×2 (08:30→23:15)
[2017-05-24] MEDS: LINACLOTIDE 145 MCG CAPSULE. PO (08:30)
[2017-05-24] MEDS: OMEGA-3 FATTY ACIDS/FISH OIL 1,000 MG CAPSULE. PO ×2 (08:30→23:16)
[2017-05-24] MEDS: CALCIUM CARB/VIT D3 500/200 TABLET. PO ×2 (08:30→16:51)
[2017-05-24] MEDS: OSELTAMIVIR 30 MG CAPSULE PO ×2 (08:30→23:19)
[2017-05-24] MEDS: APIXABAN 5 MG TABLET. PO ×2 (08:31→23:19)
[2017-05-24] MEDS: LACTOBACILLUS RHAMNOSUS GG 1 CAPSULE. PO ×2 (08:31→23:17)
[2017-05-24] MEDS: POLYETHYLENE GLYCOL 3350 17 GM PACKET. PO (08:31)
[2017-05-24] MEDS: MORPHINE ER 30 MG TABLET.ER PO ×2 (08:31→23:14)
[2017-05-24] MEDS: CARVEDILOL 3.125 MG TABLET. PO ×2 (08:32→16:51)
[2017-05-24] MEDS: DULoxetine HCL 30 MG CAPSULE.DR PO (08:38)
[2017-05-24] MEDS: POTASSIUM CHLORIDE 20 MEQ TABLET.ER. PO (09:12)
[2017-05-24] MEDS: ANTI-COAG MONITOR BY PHARMACY. MC (13:57)
[2017-05-24] MEDS: cefTRIAXone IV Push 2 GM VIAL. IVP (15:22)
[2017-05-24] MEDS: AZITHROMYCIN 500 MG in IV NORMAL SALINE 250ML 250 ML IV (23:13)
[2017-05-25 05:17] LABS: ANION GAP 9 (6-14); BLOOD UREA NITROGEN 21 mg/dL (7-20); CALCIUM 8.3 mg/dL (8.5-10.1); CARBON DIOXIDE 27 mmol/L (21-32); CHLORIDE 102 mmol/L (98-107); CREATININE 1.3 mg/dL (0.6-1.0); GFR 39.9; GLUCOSE 101 mg/dL (70-99); POTASSIUM 3.9 mmol/L (3.5-5.1); SODIUM 138 mmol/L (136-145)
[2017-05-25] MEDS: LEVOTHYROXINE 50 MCG TABLET PO (06:16)
[2017-05-25] MEDS: POLYETHYLENE GLYCOL 3350 17 GM PACKET. PO (09:00)
[2017-05-25] MEDS: LACTOBACILLUS RHAMNOSUS GG 1 CAPSULE. PO (09:07)
[2017-05-25] MEDS: DULoxetine HCL 30 MG CAPSULE.DR PO (09:07)
[2017-05-25] MEDS: OSELTAMIVIR 30 MG CAPSULE PO (09:07)
[2017-05-25] MEDS: OMEGA-3 FATTY ACIDS/FISH OIL 1,000 MG CAPSULE. PO (09:07)
[2017-05-25] MEDS: CARVEDILOL 3.125 MG TABLET. PO (09:08)
[2017-05-25] MEDS: APIXABAN 5 MG TABLET. PO (09:08)
[2017-05-25] MEDS: FUROSEMIDE 40 MG TABLET. PO (09:08)
[2017-05-25] MEDS: SUCRALFATE 1 GM TABLET. PO (09:08)
[2017-05-25] MEDS: LINACLOTIDE 145 MCG CAPSULE. PO (09:08)
[2017-05-25] MEDS: CALCIUM CARB/VIT D3 500/200 TABLET. PO (09:08)
[2017-05-25] MEDS: MORPHINE ER 30 MG TABLET.ER PO (09:11)
[2017-05-25] MEDS: cefTRIAXone IV Push 2 GM VIAL. IVP (13:45)
== END 2017-05-25 18:31 | disposition home or self-care (01) | DRG 865 ==
LOC: ER 12:44 → 5 NORTH 14:33
DX: J10.81 Influenza due to other identified influenza virus with encephalopathy (principal); N17.1 Acute kidney failure with acute cortical necrosis; N39.0 Urinary tract infection, site not specified; I48.91 Unspecified atrial fibrillation; J44.9 Chronic obstructive pulmonary disease, unspecified; G89.29 Other chronic pain; Z90.710 Acquired absence of both cervix and uterus; M54.9 Dorsalgia, unspecified; Z88.5 Allergy status to narcotic agent; Z88.1 Allergy status to other antibiotic agents
CPT/HCPCS: 36415; 70450; 80048; 80053; 80307; 80329; 81001; 82550; 83690; 83735; 83880; 84443; 84484; 85007; 85025; 85610; 85730; 87086; 87804; 87804-59; 93005; 94640; 96374; 99285; 99285-25; G0480; J0456; J0696; J7030; J7050; J7620

== ENCOUNTER 2018-05-17 22:14 | Inpatient (IN) | payer OTHER ==
[~2018-05-17] VITALS: Ht 162.6 cm; Wt 85.7 kg
[~2018-05-17 22:14] MED LIST changes: +AMOX1TAB58 PO; +CARV3.1210 PO; -CARV3.122 PO; -CITA20TA5 PO; +CITA20TA6 PO; +DICL100G18 TP; +DULO60CA6 PO; +FURO40TA4 PO; +LACT1CAP8 PO; +LINZESS145 MCG PO; +MELA3TAB2 PO; +MENT1ADH39 TP; +MORP100T30 PO; +MORP30TA3 PO; +MORP60TA PO; +MOVANTIK25 MG PO; -OXYC30TA PO; +OXYC30TA3 PO; +OXYC5TAB2 PO; +PRAM0.255 PO; +SUCR1TAB PO
--- NOTE | 2018-05-17 22:55 | PHYS DOC ---
Past Medical History Past Medical History: A-Fib, Arthritis, COPD, Hypertension, Kidney Infection, UTI Additional Past Medical Histor: CHRONIC BACK PAIN Past Surgical History: Hysterectomy Additional Past Surgical Histo: hernia Alcohol Use: None Drug Use: None Adult General Chief Complaint Chief Complaint: ALTERED MENTAL STATUS HPI HPI Patient is a 78 year old female who presents with altered mental status, this is described as confusion. Family reports that this started approximately 2 hours prior to arrival. Patient was recently released from the hospital from a urinary tract infection which cause similar symptoms. There is been no slurred speech, increased sleeping, no fever. No new head trauma. No focal weakness in the arms or legs. [] Review of Systems Review of Systems Constitutional: Denies fever or chills [] Eyes: Denies change in visual acuity, redness, or eye pain [] HENT: Denies nasal congestion or sore throat [] Respiratory: Denies cough or shortness of breath [] Cardiovascular: No chest pain or palpitations[] GI: Denies abdominal pain, nausea, vomiting, bloody stools or diarrhea [] : Denies dysuria or hematuria [] Musculoskeletal: Denies back pain or joint pain [] Integument: Denies rash or skin lesions [] Neurologic: Denies headache, focal weakness or sensory changes [] Endocrine: Denies polyuria or polydipsia [] All other systems were reviewed and found to be within normal limits, except as documented in this note. Current Medications Current Medications Allergies Allergies Allergies Coded Allergies Type Severity Reaction Last Updated Verified Sulfa (Sulfonamide Antibiotics) Allergy Intermediate 05/08/18 Yes ciprofloxacin Allergy Intermediate 07/02/15 Yes codeine Allergy Intermediate 07/02/15 Yes Physical Exam Physical Exam Constitutional: Well developed, well nourished, no acute distress, non-toxic appearance. [] HENT: Normocephalic, atraumatic, bilateral external ears normal, oropharynx moist, no oral exudates, nose normal. [] Eyes: PERRLA, EOMI, conjunctiva normal, no discharge. [] Neck: Normal range of motion, no tenderness, supple, no stridor. [] Cardiovascular:Heart rate regular rhythm, no murmur [] Lungs & Thorax: Bilateral breath sounds clear to auscultation [] Abdomen: Bowel sounds normal, soft, no tenderness, no masses, no pulsatile masses. [] Skin: Warm, dry, no erythema, no rash. [] Back: No tenderness, no CVA tenderness. [] Extremities: No tenderness, no cyanosis, no clubbing, ROM intact, no edema. [] Neurologic: Alert and oriented X 2, normal motor function, normal sensory function, no focal deficits noted. [] Psychologic: Affect normal. [] Current Patient Data Vital Signs Vital Signs Date Time Temp Pulse Resp B/P (MAP) Pulse Ox O2 Delivery O2 Flow Rate FiO2 05/17/18 23:19 98 Room Air 05/17/18 22:38 97.9 85 20 150/70 (96) 97.9 Lab Values Laboratory Tests Test 05/17/18 22:30 Urine Collection Type Unknown Urine Color Yellow Urine Clarity Clear Urine pH 5.5 Urine Specific Bryant 1.020 Urine Protein Negative mg/dL (NEG-TRACE) Urine Glucose (UA) Negative mg/dL (NEG) Urine Ketones (Stick) Negative mg/dL (NEG) Urine Blood Negative (NEG) Urine Nitrite Negative (NEG) Urine Bilirubin Negative (NEG) Urine Urobilinogen Dipstick 0.2 mg/dL (0.2 mg/dL) Urine Leukocyte Esterase Small (NEG) Urine RBC 1-2 /HPF (0-2) Urine WBC 20-40 /HPF (0-4) Urine Squamous Epithelial Cells Few /LPF Urine Bacteria Few /HPF (0-FEW) Urine Mucus Slight /LPF EKG EKG EKG shows an irregular rhythm rate of 75 bpm. Left axis deviation, QTC of 436 ms [] Radiology/Procedures Radiology/Procedures Chest x-ray shows possible minimal right upper lobe infiltrate CT scan of the head FINDINGS: No intracranial hemorrhage. No midline shift. Basal cisterns patents. Ventricles and sulci are globally prominent. No acute osseous abnormality. Orbits and paranasal sinuses unremarkable. Scattered foci of low attenuation within the white matter. IMPRESSION: 1. No acute intracranial hemorrhage. 2. Scattered regions of low attenuation within the white matter. Non-specific in nature but frequently secondary to chronic small vessel ischemic disease. If there is high clinical concern for acute etiology MRI can better assess to ensure none of these foci are acute. 3. Prominence of ventricles and sulci which is frequently secondary to age related volume loss.[] Course & Med Decision Making Course & Med Decision Making Pertinent Labs and Imaging studies reviewed. (See chart for details) ED course: Patient arrived, was placed in bed, tolerated exam well. [facility]. Patient was given IV antibiotics after determining that she does have urinary tract infection. Consultation was made with hospitalist service for admission. Medical decision making: Not firmly convinced that there is an infiltrate on chest x-ray since patient has had no increased cough, no fever. She does have urinary tract infection with metabolic encephalopathy, review of her recent admission shows that it was sensitive to ceftriaxone which was administered in the emergency department. This dictation head CT results are pending. 0126: CT of the head findings returned as noted above, patient was admitted in improved condition.[] Dragon Disclaimer Dragon Disclaimer This electronic medical record was generated, in whole or in part, using a voice recognition dictation system. Departure Departure Impression: Primary Impression: Urinary tract infection Additional Impression: Metabolic encephalopathy Disposition: 09 ADMITTED INPATIENT Admitting Physician: Anita Ashraf Condition: LEFT WITHOUT BEING SEEN Referrals: MERCED ALONZO MD (PCP) Problem Qualifiers Primary Impression: Urinary tract infection Urinary tract infection type: site unspecified Hematuria presence: without hematuria Qualified Codes: N39.0 - Urinary tract infection, site not specified LILA MOLINA DO May 17, 2018 22:54
[2018-05-17 22:58] LABS: BILIRUBIN,URINE NEGATIVE (NEG); CLARITY,URINE CLEAR; COLOR,URINE YELLOW; NITRITE,URINE NEGATIVE (NEG); PH,URINE 5.5; PROTEIN,URINE NEGATIVE (NEG-TRACE); UROBILINOGEN,URINE 0.2 mg/dL (0.2 mg/dL)
[2018-05-17 23:03] LABS: SQUAMOUS EPITHELIAL CELL,UR FEW /LPF
[2018-05-17 23:04] LABS: WBC,URINE 20-40 /HPF (0-4)
[2018-05-17 23:06] LABS: BACTERIA,URINE FEW /HPF (0-FEW)
[2018-05-17] MEDS ORDERED: IPRATRPIUM/ALBUTEROL 0.5/2.5MG 3 ML NEBU. NEB ONE (23:30)
--- NOTE | 2018-05-17 23:42 | RAD ---
Chest AP portable 05/17/2018. Reason for exam: Altered mental status. Unresponsiveness. Comparison is made with a study of 05/11/2018. Depth of inspiration remains shallow. There may be minimal infiltrate in the right upper lobe adjacent to the minor fissure, although it is not clear that this is new.. The lungs otherwise appear clear. No pleural fluid is seen. Heart size is normal. Impression: Possible minimal right upper lobe infiltrate. Electronically signed by: Oliverio Mckenzie Jr., MD (05/17/2018 11:38 PM) [id number]
[2018-05-17] MEDS ORDERED: cefTRIAXone IV Push 1 GM VIAL. IVP ONE (23:45)
[2018-05-17 23:49] LABS: BASO # 0.1 x10^3/uL (0.0-0.2); BASO % 1 % (0-3); EOS # 0.3 x10^3/uL (0.0-0.7); EOS % 4 % (0-3); HEMATOCRIT 36.6 % (36.0-47.0); HEMOGLOBIN 12.5 g/dL (12.0-15.5); LYMPH # 1.9 x10^3/uL (1.0-4.8); LYMPH % 24 % (24-48); MEAN CORPUSCULAR HEMOGLOBIN 31 pg (25-35); MEAN CORPUSCULAR HGB CONC 34 g/dL (31-37); MEAN CORPUSCULAR VOLUME 91 fL (79-100); MONO # 0.8 x10^3/uL (0.0-1.1); MONO % 10 % (0-9); NEUT # 4.9 x10^3uL (1.8-7.7); NEUT % 62 % (31-73); PLATELET COUNT 178 x10^3/uL (140-400); RED BLOOD COUNT 4.05 x10^6/uL (3.50-5.40); RED CELL DISTRIBUTION WIDTH 15.2 % (11.5-14.5)
[2018-05-17 23:57] LABS: PROTHROMBIN TIME PATIENT 16.1 SEC (11.7-14.0)
[2018-05-17 23:58] LABS: CALCIUM 9.8 mg/dL (8.5-10.1); CREATININE 1.2 mg/dL (0.6-1.0); GFR 43.7; POTASSIUM 4.5 mmol/L (3.5-5.1)
[2018-05-18] VITALS (7 sets, daily range): BP systolic 107–138; BP diastolic 48–86
[2018-05-18] MEDS ORDERED: ACETAMINOPHEN 325 MG TABLET. PO PRN
[2018-05-18 00:04] LABS: ALBUMIN 3.6 g/dL (3.4-5.0); ALBUMIN/GLOBULIN RATIO 0.9 (1.0-1.7); MAGNESIUM 1.6 mg/dL (1.8-2.4); TOTAL BILIRUBIN 0.5 mg/dL (0.2-1.0); TOTAL PROTEIN 7.4 g/dL (6.4-8.2)
--- NOTE | 2018-05-18 01:19 | RAD ---
INDICATION: AMS COMPARISON: May 17, 2018 TECHNIQUE: Axial CT images obtained through the head without intravenous contrast. One or more of the following individualized dose reduction techniques were utilized for this examination: 1. Automated exposure control; 2. Adjustment of the mA and/or kV according to patient size; 3. Use of iterative reconstruction technique. FINDINGS: No intracranial hemorrhage. No midline shift. Basal cisterns patents. Ventricles and sulci are globally prominent. No acute osseous abnormality. Orbits and paranasal sinuses unremarkable. Scattered foci of low attenuation within the white matter. IMPRESSION: 1. No acute intracranial hemorrhage. 2. Scattered regions of low attenuation within the white matter. Non-specific in nature but frequently secondary to chronic small vessel ischemic disease. If there is high clinical concern for acute etiology MRI can better assess to ensure none of these foci are acute. 3. Prominence of ventricles and sulci which is frequently secondary to age related volume loss. Electronically signed by: Chong Lozada MD (05/18/2018 1:15 AM) [employer]
[2018-05-18] MEDS: IV NORMAL SALINE 1000ML BAG 1,000 ML IV SCH (04:41)
[2018-05-18 05:59] LABS: BASO % 0 % (0-3); EOS # 0.3 x10^3/uL (0.0-0.7); EOS % 3 % (0-3); HEMATOCRIT 37.2 % (36.0-47.0); HEMOGLOBIN 12.6 g/dL (12.0-15.5); LYMPH # 1.7 x10^3/uL (1.0-4.8); LYMPH % 22 % (24-48); MEAN CORPUSCULAR HEMOGLOBIN 31 pg (25-35); MEAN CORPUSCULAR HGB CONC 34 g/dL (31-37); MEAN CORPUSCULAR VOLUME 91 fL (79-100); MONO # 0.7 x10^3/uL (0.0-1.1); MONO % 9 % (0-9); NEUT # 5.2 x10^3uL (1.8-7.7); NEUT % 65 % (31-73); PLATELET COUNT 185 x10^3/uL (140-400); RED CELL DISTRIBUTION WIDTH 15.2 % (11.5-14.5)
[2018-05-18 06:26] LABS: ALBUMIN 3.3 g/dL (3.4-5.0); ALBUMIN/GLOBULIN RATIO 0.8 (1.0-1.7); CALCIUM 9.2 mg/dL (8.5-10.1); CREATININE 1.2 mg/dL (0.6-1.0); GFR 43.7; POTASSIUM 3.6 mmol/L (3.5-5.1); TOTAL BILIRUBIN 0.4 mg/dL (0.2-1.0); TOTAL PROTEIN 7.2 g/dL (6.4-8.2)
--- NOTE | 2018-05-18 06:48 | EKG ---
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
[2018-05-18] MEDS: IPRATRPIUM/ALBUTEROL 0.5/2.5MG 3 ML NEBU. NEB SCH ×4 (07:54→20:16)
[2018-05-18] MEDS ORDERED: DICLOFENAC SODIUM 1% TOPICAL GEL 100GM TUBE. TP PRN (08:00)
[2018-05-18] MEDS ORDERED: ONDANSETRON PF 4 MG/2 ML VIAL. IV PRN ×2 (08:00)
[2018-05-18] MEDS: NON FORMULARY ITEM (Naloxegol Oxalate (Movantik) 25 MG) PO SCH ×2 (09:00→21:00)
--- NOTE | 2018-05-18 09:25 | PDOC1 ---
History and Physical Date of Admission Date of Admission DATE: 05/18/18 TIME: 09:18 Identification/Chief Complaint Chief Complaint Confusion Source Source: Caregiver, Chart review, Patient History of Present Illness History of Present Illness [age]-year-old female we are unsure if she came from [facility] or from home but any case brought in by son because of confusion. They are worried that this is another UTI she presented that way in the past. Had been nothing by mouth needing one-to-one overnight but is more awake and is eating almost her whole tray now. Looking at old records that I have reviewed, seen by speech not too long ago and once awake was able to do her regular diet with thin liquids. She is on Synthroid and her TSH recent is at goal. She does have a UTI on UA and is getting empiric Rocephin . urine culture and has been ordered but still pending. We are admitting for UTI with encephalopathy have PT OT eval. She is agreeable to SNU when I discussed with her. There is a sitter at bedside but she is not thrashing. I do believe we can DC the sitter. We will wait for urine culture. She is oriented to self and to place when coaxed. She answered the year correctly at one time but incorrectly the next time we asked it. Full code on chart Past Medical History Cardiovascular: AFIB, CHF, HTN Pulmonary: Bronchitis, COPD CENTRAL NERVOUS SYSTEM: Vertigo Heme/Onc: Iron deficiency Anemia Hepatobiliary: Cholelithiasis Psych: Anxiety, Depression Musculoskeletal: low back pain, Osteoarthritis Renal/: Chronic renal insuff, Urinary Incontinence, Other Endocrine: Diabetes, Osteoporosis Past Surgical History Past Surgical History: Cataract Removal, , Hernia Repair, Other Family History Family History: Cancer, Coronary Artery Disease, Diabetes, Drug Abuse, Heart Disease, Hypertension, Kidney Disease Family History: Parent, Other Social History Smoke: No ALCOHOL: none Drugs: Other Current Problem List Problem List Problems Medical Problems: (1) Metabolic encephalopathy Status: Acute (2) Urinary tract infection Status: Acute Current Medications Current Medications Current Medications Albuterol/ Ipratropium (Duoneb) 3 ml 1X ONCE NEB Last administered on at 23:17; Start 05/17/18 at 23:30; Stop 05/17/18 at 23:31; Status DC Ceftriaxone Sodium (Rocephin) 1 gm 1X ONCE IVP Last administered on at 23:39; Start 05/17/18 at 23:45; Stop 05/17/18 at 23:46; Status DC Ondansetron HCl (Zofran) 4 mg PRN Q8HRS PRN IV NAUSEA/VOMITING 1ST CHOICE; Start 05/18/18 at 00:00; Stop 05/18/18 at 07:55; Status DC Acetaminophen (Tylenol) 650 mg PRN Q4HRS PRN PO FEVER; Start 05/18/18 at 00:00 ; Stop 05/18/18 at 23:59 Albuterol/ Ipratropium (Duoneb) 3 ml RTQID NEB Last administered on 05/18/18at 07:54; Start 05/18/18 at 08:00; Stop 05/19/18 at 07:59 Sodium Chloride 1,000 ml @ 80 mls/hr [id number] IV Last administered on at 04:41; Start 05/18/18 at 04:15 Nicotine (Nicoderm Cq 21mg) 1 patch PRN DAILY PRN TD SMOKING CESSATION; Start 05/18/18 at 07:00 Ondansetron HCl (Zofran) 4 mg PRN Q6HRS PRN IV NAUSEA/VOMITING 1ST CHOICE; Start 05/18/18 at 08:00 Ceftriaxone Sodium (Rocephin) 1 gm Q24H IVP ; Start 05/18/18 at 21:00 Apixaban (Eliquis) 5 mg BID PO ; Start 05/18/18 at 09:00 Carvedilol (Coreg) 3.125 mg BIDWMEALS PO ; Start 05/18/18 at 09:00 Diclofenac Sodium (Voltaren) 1 olinda PRN QID PRN TP PAIN; Start 05/18/18 at 08: 00 Furosemide (Lasix) 40 mg DAILY PO ; Start 05/19/18 at 09:00 Polyethylene Glycol (miraLAX PACKET) 17 gm DAILY PO ; Start 05/18/18 at 09:00 Calcium/Vitamin D (Oscal D 500mg/ 200uts) 1 tab BIDWMEALS PO ; Start 05/18/18 at 09:00 Duloxetine HCl (Cymbalta) 60 mg DAILY PO ; Start 05/18/18 at 09:00 Lactobacillus Rhamnosus (Culturelle) 1 cap BID PO ; Start 05/18/18 at 09:00 Levothyroxine Sodium (Synthroid) 50 mcg DAILY06 PO ; Start 05/18/18 at 09:00 Non-Formulary Medication (Melatonin ) 5 mg HS PO ; Start 05/18/18 at 21:00; Status UNV Non-Formulary Medication (Naloxegol Oxalate (Movantik)) 25 mg BID PO ; Start at 09:00; Status UNV Fish Oil (Fish Oil) 2,000 mg BID PO ; Start 05/18/18 at 09:00 Pramipexole Dihydrochloride (miraPEX) 0.25 mg BID PO ; Start 05/18/18 at 09:00 Active Scripts Active Augmentin 500-125 Tablet (Amoxicillin/Potassium Clav) 1 Each Tablet 1 Tab PO BID Mirapex (Pramipexole Di-Hcl) 0.25 Mg Tablet 0.25 Mg PO BID 30 Days Miralax (Polyethylene Glycol 3350) 119 Gm Powder 17 Gm PO DAILY Reported Voltaren (Diclofenac Sodium) 100 Gm Gel..gram. 1 Gm TP PRN QID PRN Movantik (Naloxegol Oxalate) 25 Mg Tablet 25 Mg PO BID Oxycodone HCl 5 Mg Tablet 10 Mg PO PRN Q6HRS PRN Melatonin 3 Mg Tablet 5 Mg PO HS Probiotic (Lactobacillus Combo No.11) 1 Each Cap.sprink 1 Each PO BID Cymbalta (Duloxetine Hcl) 60 Mg Capsule.dr 1 Cap PO DAILY Furosemide 40 Mg Tablet 1 Tab PO TUESDAY, , Synthroid (Levothyroxine Sodium) 50 Mcg Tablet 1 Tab PO DAILY Carvedilol (Carvedilol) 3.125 Mg Tablet 1 Tab PO BID LAST DOSE GIVEN: DATE: Today at 12pm NEXT DOSE DUE: Tonight with dinner Calcarb 600 W-Vitamin D Tab (Calcium Carbonate/Vitamin D3) 1 Each Tablet 1 Each PO BID LAST DOSE GIVEN: DATE: Today at 08:30 NEXT DOSE DUE: tonight with dinner Eliquis (Apixaban) 5 Mg Tablet 5 Mg PO BID LAST DOSE GIVEN: DATE: Today at 12pm NEXT DOSE DUE: Tonight Fish Oil 1,000 Mg Softgel ([place]-3 Fatty Acids/Fish Oil) 1 Each Capsule 2 Each PO BID LAST DOSE GIVEN: This morning NEXT DOSE DUE: Take this evening Allergies Allergies: Coded Allergies: Sulfa (Sulfonamide Antibiotics) (Verified Allergy, Intermediate, 05/08/18) ciprofloxacin (Verified Allergy, Intermediate, 07/02/15) codeine (Verified Allergy, Intermediate, 07/02/15) Patient on Oxycodone with no reaction. Reaction only to Codeine. ROS Review of System Limited as on and off confusion but calm Physical Exam General: No acute distress HEENT: Atraumatic, PERRLA Lungs: Clear to auscultation, Normal air movement Heart: S1S2, RRR, no thrills, no rubs, no gallops, no murmurs, murmurs, no jug vein distention Cardiovascular: S1, S2 Breasts: Normal Abdomen: Normal bowel sounds, Soft, No tenderness, No hepatosplenomegaly, No masses Rectal Exam: mass PELVIC: Nml ext vulva Extremities: No clubbing, No cyanosis, No edema, Normal pulses, No tenderness/ swelling Skin: No rashes, No breakdown, No significant lesion Neuro: Normal gait, Normal speech, Strength at 5/5 X4 ext, Normal tone, Sensation intact, Cranial nerves 3-12 NL, Reflexes 2+ Psych/Mental Status: Mood NL Vitals Vitals Vital Signs Date Time Temp Pulse Resp B/P (MAP) Pulse Ox O2 Delivery O2 Flow Rate FiO2 05/18/18 08:06 98.6 79 18 131/86 (101) 97 Room Air 98.6 05/18/18 02:28 2.0 Labs Labs Laboratory Tests Test 05/17/18 22:30 05/17/18 23:35 05/18/18 05:10 05/18/18 05:40 Urine Collection Type Unknown Urine Color Yellow Urine Clarity Clear Urine pH 5.5 Urine Specific [place] 1.020 Urine Protein Negative mg/dL (NEG-TRACE) Urine Glucose (UA) Negative mg/dL (NEG) Urine Ketones (Stick) Negative mg/dL (NEG) Urine Blood Negative (NEG) Urine Nitrite Negative (NEG) Urine Bilirubin Negative (NEG) Urine Urobilinogen Dipstick 0.2 mg/dL (0.2 mg/dL) Urine Leukocyte Esterase Small (NEG) Urine RBC 1-2 /HPF (0-2) Urine WBC 20-40 /HPF (0-4) Urine Squamous Epithelial Cells Few /LPF Urine Bacteria Few /HPF (0-FEW) Urine Mucus Slight /LPF White Blood Count 8.0 x10^3/uL (4.0-11.0) 8.0 x10^3/uL (4.0-11.0) Red Blood Count 4.05 x10^6/uL (3.50-5.40) 4.10 x10^6/uL (3.50-5.40) Hemoglobin 12.5 g/dL (12.0-15.5) 12.6 g/dL (12.0-15.5) Hematocrit 36.6 % (36.0-47.0) 37.2 % (36.0-47.0) Mean Corpuscular Volume 91 fL (79-100) 91 fL (79-100) Mean Corpuscular Hemoglobin 31 pg (25-35) 31 pg (25-35) Mean Corpuscular Hemoglobin Concent 34 g/dL (31-37) 34 g/dL (31-37) Red Cell Distribution Width 15.2 % (11.5-14.5) 15.2 % (11.5-14.5) Platelet Count 178 x10^3/uL (140-400) 185 x10^3/uL (140-400) Neutrophils (%) (Auto) 62 % (31-73) 65 % (31-73) Lymphocytes (%) (Auto) 24 % (24-48) 22 % (24-48) Monocytes (%) (Auto) 10 % (0-9) 9 % (0-9) Eosinophils (%) (Auto) 4 % (0-3) 3 % (0-3) Basophils (%) (Auto) 1 % (0-3) 0 % (0-3) Neutrophils # (Auto) 4.9 x10^3uL (1.8-7.7) 5.2 x10^3uL (1.8-7.7) Lymphocytes # (Auto) 1.9 x10^3/uL (1.0-4.8) 1.7 x10^3/uL (1.0-4.8) Monocytes # (Auto) 0.8 x10^3/uL (0.0-1.1) 0.7 x10^3/uL (0.0-1.1) Eosinophils # (Auto) 0.3 x10^3/uL (0.0-0.7) 0.3 x10^3/uL (0.0-0.7) Basophils # (Auto) 0.1 x10^3/uL (0.0-0.2) 0.0 x10^3/uL (0.0-0.2) Prothrombin Time 16.1 SEC (11.7-14.0) Prothromb Time International Ratio 1.3 (0.8-1.1) Sodium Level 143 mmol/L (136-145) 142 mmol/L (136-145) Potassium Level 4.5 mmol/L (3.5-5.1) 3.6 mmol/L (3.5-5.1) Chloride Level 103 mmol/L (98-107) 103 mmol/L (98-107) Carbon Dioxide Level 32 mmol/L (21-32) 31 mmol/L (21-32) Anion Gap 8 (6-14) 8 (6-14) Blood Urea Nitrogen 21 mg/dL (7-20) 19 mg/dL (7-20) Creatinine 1.2 mg/dL (0.6-1.0) 1.2 mg/dL (0.6-1.0) Estimated GFR (Cockcroft-Gault) 43.7 43.7 BUN/Creatinine Ratio 18 (6-20) 16 (6-20) Glucose Level 158 mg/dL (70-99) 148 mg/dL (70-99) Calcium Level 9.8 mg/dL (8.5-10.1) 9.2 mg/dL (8.5-10.1) Magnesium Level 1.6 mg/dL (1.8-2.4) Total Bilirubin 0.5 mg/dL (0.2-1.0) 0.4 mg/dL (0.2-1.0) Aspartate Amino Transf (AST/SGOT) 28 U/L (15-37) 24 U/L (15-37) Alanine Aminotransferase (ALT/SGPT) 33 U/L (14-59) 27 U/L (14-59) Alkaline Phosphatase 54 U/L (46-116) 46 U/L (46-116) Ammonia < 10 mcmol/L (11-34) Troponin I Quantitative < 0.017 ng/mL (0.000-0.055) XP-Fsy-[id number]-Type Natriuretic Peptide 909 pg/mL (0-449) Total Protein 7.4 g/dL (6.4-8.2) 7.2 g/dL (6.4-8.2) Albumin 3.6 g/dL (3.4-5.0) 3.3 g/dL (3.4-5.0) Albumin/Globulin Ratio 0.9 (1.0-1.7) 0.8 (1.0-1.7) Laboratory Tests Test 05/17/18 22:30 05/17/18 23:35 05/18/18 05:10 05/18/18 05:40 Urine Collection Type Unknown Urine Color Yellow Urine Clarity Clear Urine pH 5.5 Urine Specific [place] 1.020 Urine Protein Negative mg/dL (NEG-TRACE) Urine Glucose (UA) Negative mg/dL (NEG) Urine Ketones (Stick) Negative mg/dL (NEG) Urine Blood Negative (NEG) Urine Nitrite Negative (NEG) Urine Bilirubin Negative (NEG) Urine Urobilinogen Dipstick 0.2 mg/dL (0.2 mg/dL) Urine Leukocyte Esterase Small (NEG) Urine RBC 1-2 /HPF (0-2) Urine WBC 20-40 /HPF (0-4) Urine Squamous Epithelial Cells Few /LPF Urine Bacteria Few /HPF (0-FEW) Urine Mucus Slight /LPF White Blood Count 8.0 x10^3/uL (4.0-11.0) 8.0 x10^3/uL (4.0-11.0) Red Blood Count 4.05 x10^6/uL (3.50-5.40) 4.10 x10^6/uL (3.50-5.40) Hemoglobin 12.5 g/dL (12.0-15.5) 12.6 g/dL (12.0-15.5) Hematocrit 36.6 % (36.0-47.0) 37.2 % (36.0-47.0) Mean Corpuscular Volume 91 fL (79-100) 91 fL (79-100) Mean Corpuscular Hemoglobin 31 pg (25-35) 31 pg (25-35) Mean Corpuscular Hemoglobin Concent 34 g/dL (31-37) 34 g/dL (31-37) Red Cell Distribution Width 15.2 % (11.5-14.5) 15.2 % (11.5-14.5) Platelet Count 178 x10^3/uL (140-400) 185 x10^3/uL (140-400) Neutrophils (%) (Auto) 62 % (31-73) 65 % (31-73) Lymphocytes (%) (Auto) 24 % (24-48) 22 % (24-48) Monocytes (%) (Auto) 10 % (0-9) 9 % (0-9) Eosinophils (%) (Auto) 4 % (0-3) 3 % (0-3) Basophils (%) (Auto) 1 % (0-3) 0 % (0-3) Neutrophils # (Auto) 4.9 x10^3uL (1.8-7.7) 5.2 x10^3uL (1.8-7.7) Lymphocytes # (Auto) 1.9 x10^3/uL (1.0-4.8) 1.7 x10^3/uL (1.0-4.8) Monocytes # (Auto) 0.8 x10^3/uL (0.0-1.1) 0.7 x10^3/uL (0.0-1.1) Eosinophils # (Auto) 0.3 x10^3/uL (0.0-0.7) 0.3 x10^3/uL (0.0-0.7) Basophils # (Auto) 0.1 x10^3/uL (0.0-0.2) 0.0 x10^3/uL (0.0-0.2) Prothrombin Time 16.1 SEC (11.7-14.0) Prothromb Time International Ratio 1.3 (0.8-1.1) Sodium Level 143 mmol/L (136-145) 142 mmol/L (136-145) Potassium Level 4.5 mmol/L (3.5-5.1) 3.6 mmol/L (3.5-5.1) Chloride Level 103 mmol/L (98-107) 103 mmol/L (98-107) Carbon Dioxide Level 32 mmol/L (21-32) 31 mmol/L (21-32) Anion Gap 8 (6-14) 8 (6-14) Blood Urea Nitrogen 21 mg/dL (7-20) 19 mg/dL (7-20) Creatinine 1.2 mg/dL (0.6-1.0) 1.2 mg/dL (0.6-1.0) Estimated GFR (Cockcroft-Gault) 43.7 43.7 BUN/Creatinine Ratio 18 (6-20) 16 (6-20) Glucose Level 158 mg/dL (70-99) 148 mg/dL (70-99) Calcium Level 9.8 mg/dL (8.5-10.1) 9.2 mg/dL (8.5-10.1) Magnesium Level 1.6 mg/dL (1.8-2.4) Total Bilirubin 0.5 mg/dL (0.2-1.0) 0.4 mg/dL (0.2-1.0) Aspartate Amino Transf (AST/SGOT) 28 U/L (15-37) 24 U/L (15-37) Alanine Aminotransferase (ALT/SGPT) 33 U/L (14-59) 27 U/L (14-59) Alkaline Phosphatase 54 U/L (46-116) 46 U/L (46-116) Ammonia < 10 mcmol/L (11-34) Troponin I Quantitative < 0.017 ng/mL (0.000-0.055) CD-Vet-N-Type Natriuretic Peptide 909 pg/mL (0-449) Total Protein 7.4 g/dL (6.4-8.2) 7.2 g/dL (6.4-8.2) Albumin 3.6 g/dL (3.4-5.0) 3.3 g/dL (3.4-5.0) Albumin/Globulin Ratio 0.9 (1.0-1.7) 0.8 (1.0-1.7) VTE Prophylaxis Ordered VTE Prophylaxis Devices: Yes VTE Pharmacological Prophylaxi: Yes Assessment/Plan Assessment/Plan UTI with met encephalopathy Generalized weakness-snu screen Hypothyroidism on Synthroid with TSH recent at goal HTN -on coreg, controlled PLAN: Admit, await urine culture Continue IV Rocephin for now Okay for regular diet PT OT Social work for SNU screen pending PT recommendations I have reconciled home meds I do believe we may DC sitter No need to check thyroid as recent TSH is at goal Discussed with RN at bedside NONA CASTILLO MD May 18, 2018 09:25
[2018-05-18] MEDS: LACTOBACILLUS RHAMNOSUS GG 1 CAPSULE. PO SCH ×2 (10:00→22:05)
[2018-05-18] MEDS: PRAMIPEXOLE 0.25 MG TABLET. PO SCH ×2 (10:01→22:05)
[2018-05-18] MEDS: LEVOTHYROXINE 50 MCG TABLET PO SCH (10:01)
[2018-05-18] MEDS: APIXABAN 5 MG TABLET. PO SCH ×2 (10:02→22:04)
[2018-05-18] MEDS: DULoxetine HCL 30 MG CAPSULE.DR PO SCH (10:02)
[2018-05-18] MEDS: CALCIUM CARB/VIT D3 500/200 TABLET. PO SCH ×2 (10:02→17:06)
[2018-05-18] MEDS: CARVEDILOL 3.125 MG TABLET. PO SCH ×2 (10:02→17:06)
[2018-05-18] MEDS: POLYETHYLENE GLYCOL 3350 17 GM PACKET. PO SCH (10:03)
[2018-05-18] MEDS: NICOTINE 21MG PATCH. TD PRN (10:49)
[2018-05-18] MEDS: OMEGA-3 FATTY ACIDS/FISH OIL 1,000 MG CAPSULE. PO SCH ×2 (10:49→22:05)
[2018-05-18] MEDS ORDERED: NON FORMULARY ITEM (Melatonin 5 MG) PO SCH (21:00)
[2018-05-18] MEDS ORDERED: cefTRIAXone IV Push 1 GM VIAL. IVP SCH (21:00)
[2018-05-19] MEDS: ACETAMINOPHEN 325 MG TABLET. PO PRN ×2 (00:57→15:45)
[2018-05-19 03:00] VITALS: BP 143/57
[2018-05-19] MEDS: LEVOTHYROXINE 50 MCG TABLET PO SCH (06:19)
[2018-05-19] MEDS: IV NORMAL SALINE 1000ML BAG 1,000 ML IV SCH ×2 (06:19→06:37)
[2018-05-19 07:00] VITALS: BP 127/71
[2018-05-19] MEDS: IPRATRPIUM/ALBUTEROL 0.5/2.5MG 3 ML NEBU. NEB SCH (07:32)
[2018-05-19] MEDS ORDERED: FUROSEMIDE 40 MG TABLET. PO SCH (09:00)
[2018-05-19] MEDS ORDERED: CEFP200T PO (09:25)
--- NOTE | 2018-05-19 09:26 | DISCH ---
DISCHARGE WITH HOME HEALTH DISCHARGE INFORMATION: Discharge Date: May 19, 2018 Final Diagnosis: Problems Medical Problems: (1) Metabolic encephalopathy Status: Acute (2) Urinary tract infection Status: Acute Condition on Discharge: Stable CODE STATUS: Code Status: Full HOME HEALTH: Face to Face: I certify this patient is under my care and that I, or a nurse practitioner or physician's reference assistant working with me, had a face to face encounter that meets the physician face to face encounter requirements with this patient on []. Medical Complications: Other (uti with confusion) Physical Therapy For: Evalulation/Treatment Occupational Therapy For: Evaluation/Treatment Speech Language Pathology For: Evaluation/Treatment Home Health Aide For: Self-care STAFF SONOGRAPHER For: Community Resources Pt Meets Homebound Status: Unsteady balance w/ amb,, Frequent falls w/ injury POST DISCHARGE ORDERS: Activity Instructions for Disc: Activity as tolerated Weight Bearing Status after Di: As tolerated Bathing Instructions: Shower-keep dressing dry DIET AFTER DISCHARGE: Cardiac Wound/Incision Care: No wound care needed CHECKS AFTER DISCHARGE: Checks after discharge: Check blood press - daily, Check blood sugar, ac/hs FOLLOW-UP: Follow up with: PCP TREATMENT/EQUIPMENT ORDERS: Adaptive Equipment Issued: None CERTIFICATION STATEMENT: Certification Statement: Certification Statement: Based on the above finding, I certify that this patient is confined to the home and needs intermittent fci care, physical therapy and/or speech therapy, or continues to need occupational therapy.~ This patient is under my care, and I have initiated the establishment of the plan of care.~ This patient will be followed by myself or a community physician who will periodically review the plan of care. Home Meds Active Scripts Cefpodoxime Proxetil (CEFPODOXIME PROXETIL) 200 Mg Tablet, 1 TAB PO BID for uti , #14 TAB Prov:NONA CASTILLO MD 05/19/18 Amoxicillin/Potassium Clav (AUGMENTIN 500-125 TABLET) 1 Each Tablet, 1 TAB PO BID for UTI/ PNEUMONIA, #14 TAB Prov:LUCY BREWER MD 05/14/18 Pramipexole Di-Hcl (MIRAPEX) 0.25 Mg Tablet, 0.25 MG PO BID for SLEEP/ RESTLESS LEGS for 30 Days, #60 TAB Prov:LUCY BREWER MD 05/14/18 Polyethylene Glycol 3350 (MIRALAX) 119 Gm Powder, 17 GM PO DAILY, #527 GM Prov:NICOLASA LOPEZ MD 11/17/15 Reported Medications Diclofenac Sodium (VOLTAREN) 100 Gm Gel..gram., 1 GM TP PRN QID PRN for PAIN, # 1 EACH 2 Refills 05/08/18 Naloxegol Oxalate (Movantik) 25 Mg Tablet, 25 MG PO BID for IBS, TAB 05/08/18 Oxycodone HCl (Oxycodone HCl) 5 Mg Tablet, 10 MG PO PRN Q6HRS PRN for BREAKTHROUGH PAIN, TAB 05/08/18 Melatonin (MELATONIN) 3 Mg Tablet, 5 MG PO HS, TAB 05/22/17 Lactobacillus Combo No.11 (PROBIOTIC) 1 Each Cap.sprink, 1 EACH PO BID, CAP 05/22/17 Duloxetine Hcl (CYMBALTA) 60 Mg Capsule.dr, 1 CAP PO DAILY, #90 CAP 3 Refills 05/22/17 Furosemide (FUROSEMIDE) 40 Mg Tablet, 1 TAB PO TUESDAY, , FR, #30 TAB 5 Refills 05/22/17 Levothyroxine Sodium (SYNTHROID) 50 Mcg Tablet, 1 TAB PO DAILY, #30 TAB 5 Refills 02/07/16 Carvedilol (CARVEDILOL ) 3.125 Mg Tablet, 1 TAB PO BID, #60 TAB 3 Refills LAST DOSE GIVEN: DATE: Today at 12pm NEXT DOSE DUE: Tonight with dinner 02/03/15 Calcium Carbonate/Vitamin D3 (CALCARB 600 W-VITAMIN D TAB) 1 Each Tablet, 1 EACH PO BID LAST DOSE GIVEN: DATE: Today at 08:30 NEXT DOSE DUE: tonight with dinner 02/03/15 Apixaban (ELIQUIS) 5 Mg Tablet, 5 MG PO BID LAST DOSE GIVEN: DATE: Today at 12pm NEXT DOSE DUE: Tonight 02/03/15 [place]-3 Fatty Acids/Fish Oil (FISH OIL 1,000 MG SOFTGEL) 1 Each Capsule, 2 EACH PO BID LAST DOSE GIVEN: This morning NEXT DOSE DUE: Take this evening 02/03/15 Discontinued Reported Medications Morphine Sulfate (MORPHINE SULFATE ER) 60 Mg Tablet.er, 60 MG PO BID for chronic back & arthritis pain, TAB.SR 05/08/18 Morphine Sulfate (MORPHINE SULFATE ER) 30 Mg Tablet.er, 30 MG PO BID for chronic back & arthritis pain, TAB.SR 05/08/18 NONA CASTILLO MD May 19, 2018 09:26
[2018-05-19] MEDS: OMEGA-3 FATTY ACIDS/FISH OIL 1,000 MG CAPSULE. PO SCH (09:29)
[2018-05-19] MEDS: POLYETHYLENE GLYCOL 3350 17 GM PACKET. PO SCH (09:29)
[2018-05-19] MEDS: PRAMIPEXOLE 0.25 MG TABLET. PO SCH (09:29)
[2018-05-19] MEDS: CALCIUM CARB/VIT D3 500/200 TABLET. PO SCH (09:29)
[2018-05-19] MEDS: LACTOBACILLUS RHAMNOSUS GG 1 CAPSULE. PO SCH (09:29)
--- NOTE | 2018-05-19 09:29 | PDOC3 ---
Discharge Summary Visit Information Date of Admission: May 18, 2018 Date of Discharge: May 19, 2018 Admitting Diagnosis Comment: Assessment/Plan UTI with met encephalopathy Generalized weakness-snu screen Hypothyroidism on Synthroid with TSH recent at goal HTN -on coreg, controlle Final Diagnosis Problems Medical Problems: (1) Metabolic encephalopathy Status: Acute (2) Urinary tract infection Status: Acute Brief Hospital Course Allergies Allergies Coded Allergies Type Severity Reaction Last Updated Verified Sulfa (Sulfonamide Antibiotics) Allergy Intermediate 05/08/18 Yes ciprofloxacin Allergy Intermediate 07/02/15 Yes codeine Allergy Intermediate 07/02/15 Yes Vital Signs Vital Signs Date Time Temp Pulse Resp B/P (MAP) Pulse Ox O2 Delivery O2 Flow Rate FiO2 05/19/18 07:34 97 Room Air 05/19/18 07:00 98.6 83 18 127/71 (89) 98.6 05/18/18 20:20 2.0 Lab Results Laboratory Tests Test 05/17/18 22:30 05/17/18 23:35 05/18/18 05:10 05/18/18 05:40 Urine Collection Type Unknown Urine Color Yellow Urine Clarity Clear Urine pH 5.5 Urine Specific [place] 1.020 Urine Protein Negative mg/dL (NEG-TRACE) Urine Glucose (UA) Negative mg/dL (NEG) Urine Ketones (Stick) Negative mg/dL (NEG) Urine Blood Negative (NEG) Urine Nitrite Negative (NEG) Urine Bilirubin Negative (NEG) Urine Urobilinogen Dipstick 0.2 mg/dL (0.2 mg/dL) Urine Leukocyte Esterase Small (NEG) Urine RBC 1-2 /HPF (0-2) Urine WBC 20-40 /HPF (0-4) Urine Squamous Epithelial Cells Few /LPF Urine Bacteria Few /HPF (0-FEW) Urine Mucus Slight /LPF White Blood Count 8.0 x10^3/uL (4.0-11.0) 8.0 x10^3/uL (4.0-11.0) Red Blood Count 4.05 x10^6/uL (3.50-5.40) 4.10 x10^6/uL (3.50-5.40) Hemoglobin 12.5 g/dL (12.0-15.5) 12.6 g/dL (12.0-15.5) Hematocrit 36.6 % (36.0-47.0) 37.2 % (36.0-47.0) Mean Corpuscular Volume 91 fL (79-100) 91 fL (79-100) Mean Corpuscular Hemoglobin 31 pg (25-35) 31 pg (25-35) Mean Corpuscular Hemoglobin Concent 34 g/dL (31-37) 34 g/dL (31-37) Red Cell Distribution Width 15.2 % (11.5-14.5) 15.2 % (11.5-14.5) Platelet Count 178 x10^3/uL (140-400) 185 x10^3/uL (140-400) Neutrophils (%) (Auto) 62 % (31-73) 65 % (31-73) Lymphocytes (%) (Auto) 24 % (24-48) 22 % (24-48) Monocytes (%) (Auto) 10 % (0-9) 9 % (0-9) Eosinophils (%) (Auto) 4 % (0-3) 3 % (0-3) Basophils (%) (Auto) 1 % (0-3) 0 % (0-3) Neutrophils # (Auto) 4.9 x10^3uL (1.8-7.7) 5.2 x10^3uL (1.8-7.7) Lymphocytes # (Auto) 1.9 x10^3/uL (1.0-4.8) 1.7 x10^3/uL (1.0-4.8) Monocytes # (Auto) 0.8 x10^3/uL (0.0-1.1) 0.7 x10^3/uL (0.0-1.1) Eosinophils # (Auto) 0.3 x10^3/uL (0.0-0.7) 0.3 x10^3/uL (0.0-0.7) Basophils # (Auto) 0.1 x10^3/uL (0.0-0.2) 0.0 x10^3/uL (0.0-0.2) Prothrombin Time 16.1 SEC (11.7-14.0) Prothromb Time International Ratio 1.3 (0.8-1.1) Sodium Level 143 mmol/L (136-145) 142 mmol/L (136-145) Potassium Level 4.5 mmol/L (3.5-5.1) 3.6 mmol/L (3.5-5.1) Chloride Level 103 mmol/L (98-107) 103 mmol/L (98-107) Carbon Dioxide Level 32 mmol/L (21-32) 31 mmol/L (21-32) Anion Gap 8 (6-14) 8 (6-14) Blood Urea Nitrogen 21 mg/dL (7-20) 19 mg/dL (7-20) Creatinine 1.2 mg/dL (0.6-1.0) 1.2 mg/dL (0.6-1.0) Estimated GFR (Cockcroft-Gault) 43.7 43.7 BUN/Creatinine Ratio 18 (6-20) 16 (6-20) Glucose Level 158 mg/dL (70-99) 148 mg/dL (70-99) Calcium Level 9.8 mg/dL (8.5-10.1) 9.2 mg/dL (8.5-10.1) Magnesium Level 1.6 mg/dL (1.8-2.4) Total Bilirubin 0.5 mg/dL (0.2-1.0) 0.4 mg/dL (0.2-1.0) Aspartate Amino Transf (AST/SGOT) 28 U/L (15-37) 24 U/L (15-37) Alanine Aminotransferase (ALT/SGPT) 33 U/L (14-59) 27 U/L (14-59) Alkaline Phosphatase 54 U/L (46-116) 46 U/L (46-116) Ammonia < 10 mcmol/L (11-34) Troponin I Quantitative < 0.017 ng/mL (0.000-0.055) VO-Nuv-T-Type Natriuretic Peptide 909 pg/mL (0-449) Total Protein 7.4 g/dL (6.4-8.2) 7.2 g/dL (6.4-8.2) Albumin 3.6 g/dL (3.4-5.0) 3.3 g/dL (3.4-5.0) Albumin/Globulin Ratio 0.9 (1.0-1.7) 0.8 (1.0-1.7) Brief Hospital Course Ms. Chaudhry is a 78 old F admitted for confusion and was found to have UTI on UA. UA is kind of bland with 20-40 WBC but the rest is negative. Urine culture is pending. She needs a sitter but is now back coherent with no PT needs at least resumption only of current home health. Discussed with daughter Sera over the phone. We will discharge today on by mouth penicillin. Doing well with IV Rocephin. She gets extreme bad hives with sulfa and Cipro. To resume current home health and I have discussed with social work Yfn. Consults performed none Procedures performed none Dw Sera dtr over phone - pleased with her outcome Discharge Information Condition at Discharge: Improved, Stable Disposition/Orders: D/C to Home w/ HH Scheduled Amoxicillin/Potassium Clav (Augmentin 500-125 Tablet) 1 Each Tablet, 1 TAB PO BID for UTI/ PNEUMONIA, #14 Prescribed by: LUCY BREWER MD on 05/14/18 1322 Last Action: HELD on 05/18/18754 by NONA CASTILLO Apixaban (Eliquis) 5 Mg Tablet, 5 MG PO BID, (Reported) LAST DOSE GIVEN: DATE: Today at 12pm NEXT DOSE DUE: Tonight Entered as Reported by: KARL TAHKUR on 02/03/15 120 Last Action: Continued on 05/18/18754 by NONA CASTILLO Calcium Carbonate/Vitamin D3 (Calcarb 600 W-Vitamin D Tab) 1 Each Tablet, 1 EACH PO BID, (Reported) LAST DOSE GIVEN: DATE: Today at 08:30 NEXT DOSE DUE: tonight with dinner Entered as Reported by: KARL THAKUR on 02/03/15 1206 Last Action: Converted on 05/18/18754 by NONA CASTILLO Carvedilol (Carvedilol ) 3.125 Mg Tablet, 1 TAB PO BID, #60 Ref 3 (Reported) LAST DOSE GIVEN: DATE: Today at 12pm NEXT DOSE DUE: Tonight with dinner Entered as Reported by: KARL THAKUR on 02/03/15 1432 Last Action: Continued on 05/18/18754 by NONA CASTILLO Cefpodoxime Proxetil (Cefpodoxime Proxetil) 200 Mg Tablet, 1 TAB PO BID for uti , #14 Prescribed by: NONA CASTILLO on 05/19/18924 Duloxetine Hcl (Cymbalta) 60 Mg Capsule.dr, 1 CAP PO DAILY, #90 Ref 3 (Reported) Entered as Reported by: LETI CRUMP on 05/22/171450 Last Action: Converted on 05/18/18754 by NONA CASTILLO Furosemide (Furosemide) 40 Mg Tablet, 1 TAB PO TUESDAY, , FR, #30 Ref 5 ( Reported) Entered as Reported by: LETI CRUMP on 05/22/171450 Last Action: Continued on 05/18/18754 by NONA CASTILLO Lactobacillus Combo No.11 (Probiotic) 1 Each Cap.sprink, 1 EACH PO BID, ( Reported) Entered as Reported by: LETI CRUMP on 05/22/171450 Last Action: Converted on 05/18/18754 by NONA CASTILLO Levothyroxine Sodium (Synthroid) 50 Mcg Tablet, 1 TAB PO DAILY, #30 Ref 5 ( Reported) Entered as Reported by: SHEKHAR FARNSWORTH on 02/07/16 1010 Last Action: Converted on 05/18/18754 by NONA CASTILLO Melatonin (Melatonin) 3 Mg Tablet, 5 MG PO HS, (Reported) Entered as Reported by: LETI CRUMP on 05/22/171450 Last Action: Converted on 05/18/18754 by NONA CASTILLO Naloxegol Oxalate (Movantik) 25 Mg Tablet, 25 MG PO BID for IBS, (Reported) Entered as Reported by: SHIRLEY CHOWDHURY on 05/08/18 1420 Last Action: Converted on 05/18/18754 by NONA CASTILLO [place]-3 Fatty Acids/Fish Oil (Fish Oil 1,000 Mg Softgel) 1 Each Capsule, 2 EACH PO BID, (Reported) LAST DOSE GIVEN: This morning NEXT DOSE DUE: Take this evening Entered as Reported by: KARL THAKUR on 02/03/15 1206 Last Action: Converted on 05/18/18754 by NONA CASTILLO Polyethylene Glycol 3350 (Miralax) 119 Gm Powder, 17 GM PO DAILY, #527 Prescribed by: NICOLASA LOPEZ on 11/17/152121 Last Action: Continued on 05/18/18754 by NONA CASTILLO Pramipexole Di-Hcl (Mirapex) 0.25 Mg Tablet, 0.25 MG PO BID for SLEEP/ RESTLESS LEGS for 30 Days, #60 Prescribed by: LUCY BREWER MD on 05/14/181321 Last Action: Converted on 05/18/18754 by NONA CASTILLO Scheduled PRN Diclofenac Sodium (Voltaren) 100 Gm Gel..gram., 1 GM TP PRN QID PRN for PAIN, # 1 Ref 2 (Reported) Entered as Reported by: SHIRLEY CHOWDHURY on 05/08/181419 Last Action: Continued on 05/18/18754 by NONA CASTILLO Oxycodone HCl (Oxycodone HCl) 5 Mg Tablet, 10 MG PO PRN Q6HRS PRN for BREAKTHROUGH PAIN, (Reported) Entered as Reported by: SHIRLEY CHOWDHURY on 05/08/181419 Last Action: HELD on 05/18/18754 by NONA CASTILLO Discontinued Medications Morphine Sulfate (Morphine Sulfate Er) 30 Mg Tablet.er, 30 MG PO BID for chronic back & arthritis pain, (Reported) Entered as Reported by: SHIRLEY CHOWDHURY on 05/08/181419 Morphine Sulfate (Morphine Sulfate Er) 60 Mg Tablet.er, 60 MG PO BID for chronic back & arthritis pain, (Reported) Entered as Reported by: SHIRLEY CHOWDHURY on 05/08/181419 NONA CASTILLO MD May 19, 2018 09:29
[2018-05-19] MEDS: CARVEDILOL 3.125 MG TABLET. PO SCH ×2 (09:30→15:34)
[2018-05-19] MEDS: DULoxetine HCL 30 MG CAPSULE.DR PO SCH (09:30)
[2018-05-19] MEDS: APIXABAN 5 MG TABLET. PO SCH (09:31)
[2018-05-19] MEDS: NICOTINE 21MG PATCH. TD PRN (09:33)
[2018-05-19 11:34] VITALS: BP 132/56
[2018-05-19] MEDS ORDERED: ANTI-COAG MONITOR BY PHARMACY. MC PRN (14:30)
[2018-05-19 15:00] VITALS: BP 150/104
[2018-05-19 15:34] VITALS: BP 150/104
== END 2018-05-19 17:00 | disposition home health service (06) | DRG 871 ==
LOC: ER 22:14 → 5 NORTH 23:23
PROVIDERS: ADMIT Internal Medicine; ATTEND Internal Medicine
DX: A41.9 Sepsis, unspecified organism (principal); G93.41 Metabolic encephalopathy; N39.0 Urinary tract infection, site not specified; I13.0 Hypertensive heart and chronic kidney disease with heart failure and stage 1 through stage 4 chronic kidney disease, or unspecified chronic kidney disease; I48.91 Unspecified atrial fibrillation; M19.90 Unspecified osteoarthritis, unspecified site; J44.9 Chronic obstructive pulmonary disease, unspecified; G89.29 Other chronic pain; I50.9 Heart failure, unspecified; F41.9 Anxiety disorder, unspecified; F32.9 Major depressive disorder, single episode, unspecified; N18.9 Chronic kidney disease, unspecified; E11.22 Type 2 diabetes mellitus with diabetic chronic kidney disease; M81.0 Age-related osteoporosis without current pathological fracture; E03.9 Hypothyroidism, unspecified; Z90.710 Acquired absence of both cervix and uterus; Z88.1 Allergy status to other antibiotic agents; Z88.5 Allergy status to narcotic agent; Z88.2 Allergy status to sulfonamides; Z79.01 Long term (current) use of anticoagulants; Z82.49 Family history of ischemic heart disease and other diseases of the circulatory system; Z83.3 Family history of diabetes mellitus; Z98.891 History of uterine scar from previous surgery; Z98.49 Cataract extraction status, unspecified eye; Z79.899 Other long term (current) drug therapy
CPT/HCPCS: 36415; 70450; 71045; 80053; 81001; 82140; 83735; 83880; 84484; 85025; 85610; 85651; 87086; 93005; 94640; 94760; 96374; J0696; J7030; J7620; 97110; 97530; 97535; 99285-25

== ENCOUNTER 2018-06-13 17:52 | Emergency (ER) | payer OTHER ==
[~2018-06-13] VITALS: Ht 162.6 cm; Wt 83.9 kg
[~2018-06-13 17:52] MED LIST changes: +CEFP200T PO
[2018-06-13 18:46] LABS: BILIRUBIN,URINE NEGATIVE (NEG); CLARITY,URINE CLEAR; COLOR,URINE YELLOW; NITRITE,URINE NEGATIVE (NEG); PROTEIN,URINE NEGATIVE (NEG-TRACE); UROBILINOGEN,URINE 0.2 mg/dL (0.2 mg/dL)
[2018-06-13 18:52] LABS: BACTERIA,URINE FEW /HPF (0-FEW); RBC,URINE 0 /HPF (0-2); WBC,URINE 0 /HPF (0-4)
[2018-06-13 19:25] LABS: CREATININE 1.4 mg/dL (0.6-1.0); GFR 36.6; POTASSIUM 3.3 mmol/L (3.5-5.1)
[2018-06-13 19:29] LABS: ALBUMIN 3.3 g/dL (3.4-5.0); ALBUMIN/GLOBULIN RATIO 0.7 (1.0-1.7); CALCIUM 9.7 mg/dL (8.5-10.1); TOTAL BILIRUBIN 0.6 mg/dL (0.2-1.0); TOTAL PROTEIN 8.1 g/dL (6.4-8.2)
[2018-06-13 19:50] LABS: BASO % 1 % (0-3); EOS # 0.1 x10^3/uL (0.0-0.7); EOS % 2 % (0-3); HEMATOCRIT 34.4 % (36.0-47.0); HEMOGLOBIN 11.9 g/dL (12.0-15.5); LYMPH # 1.6 x10^3/uL (1.0-4.8); LYMPH % 21 % (24-48); MEAN CORPUSCULAR HEMOGLOBIN 31 pg (25-35); MEAN CORPUSCULAR HGB CONC 35 g/dL (31-37); MEAN CORPUSCULAR VOLUME 90 fL (79-100); MONO # 0.6 x10^3/uL (0.0-1.1); MONO % 8 % (0-9); NEUT # 5.2 x10^3uL (1.8-7.7); NEUT % 68 % (31-73); PLATELET COUNT 172 x10^3/uL (140-400); RED BLOOD COUNT 3.85 x10^6/uL (3.50-5.40); RED CELL DISTRIBUTION WIDTH 14.9 % (11.5-14.5); WHITE BLOOD COUNT 7.7 x10^3/uL (4.0-11.0)
[2018-06-13 21:16] VITALS: BP 179/80
--- NOTE | 2018-06-13 22:03 | RAD ---
Examination: CT HEAD WO CONTRAST History: AMS Comparison/Correlation: 05/17/2018 CT head without contrast Findings: Axial images of the head were obtained without contrast. Atrophy is present. Mild chronic ischemic changes white matter noted. No intracranial hemorrhage, midline shift, or mass effect. Cavernous carotid calcifications noted. Small left basal ganglier lacunar infarct is unchanged. Globes and optic nerves are unremarkable. Minimal chronic paranasal sinusitis is present. Impression: No acute process. Electronically signed by: Arsen Holder MD (06/13/2018 9:59 PM) [facility]
--- NOTE | 2018-06-13 22:41 | PHYS DOC ---
Past Medical History Past Medical History: A-Fib, Arthritis, COPD, Diabetes-Type II, Hypertension, Hypothyroid, Kidney Infection, UTI Additional Past Medical Histor: CHRONIC BACK PAIN Past Surgical History: Hysterectomy Additional Past Surgical Histo: hernia Alcohol Use: None Drug Use: None Adult General Chief Complaint Chief Complaint: PAIN ON URINATION [facility] Patient is a 78 year old female with history of A. fib, hypertension, high cholesterol, kidney infections, UTI, diabetes type 2, who presents with a doctor , Dr. mckeon patient has not been acting right, she states patient is "mean". She states patient usually behaves this way when she has a UTI. She states patient was seen by the PCP a month ago was diagnosed with UTI finished Levaquin. Patient herself denies any urgency frequency dysuria, denies any fever , denies any nausea vomiting. Review of Systems Review of Systems Constitutional: Denies fever or chills [] Eyes: Denies change in visual acuity, redness, or eye pain [] HENT: Denies nasal congestion or sore throat [] Respiratory: Denies cough or shortness of breath [] Cardiovascular: No additional information not addressed in HPI [] GI: Denies abdominal pain, nausea, vomiting, bloody stools or diarrhea [] : Denies dysuria or hematuria [] Musculoskeletal: Denies back pain or joint pain [] Integument: Denies rash or skin lesions [] Neurologic: Denies headache, focal weakness or sensory changes [] Psych: acting mean All other systems were reviewed and found to be within normal limits, except as documented in this note. Allergies Allergies Allergies Coded Allergies Type Severity Reaction Last Updated Verified Sulfa (Sulfonamide Antibiotics) Allergy Intermediate 05/08/18 Yes ciprofloxacin Allergy Intermediate 07/02/15 Yes codeine Allergy Intermediate 07/02/15 Yes Physical Exam Physical Exam Constitutional: Well developed, well nourished, no acute distress, non-toxic appearance. [] HENT: Normocephalic, atraumatic, bilateral external ears normal, oropharynx moist, no oral exudates, nose normal. [] Eyes: PERRLA, EOMI, conjunctiva normal, no discharge. [] Neck: Normal range of motion, no tenderness, supple, no stridor. [] Cardiovascular:Heart rate regular rhythm, no murmur [] Lungs & Thorax: Bilateral breath sounds clear to auscultation [] Abdomen: Bowel sounds normal, soft, no tenderness, no masses, no pulsatile masses. [] Skin: Warm, dry, no erythema, no rash. [] Back: No tenderness, no CVA tenderness. [] Extremities: No tenderness, no cyanosis, no clubbing, ROM intact, no edema. [] Neurologic: Alert and oriented X 3, normal motor function, normal sensory function, no focal deficits noted. [] Psychologic: Affect normal, judgement normal, mood normal. [] Current Patient Data Vital Signs Vital Signs Date Time Temp Pulse Resp B/P (MAP) Pulse Ox O2 Delivery O2 Flow Rate FiO2 06/13/18 20:16 71 155/69 (97) 94 Room Air 06/13/18 18:23 98.3 18 98.3 Lab Values Laboratory Tests Test 06/13/18 18:33 06/13/18 18:50 06/13/18 19:40 Urine Collection Type Unknown Urine Color Yellow Urine Clarity Clear Urine pH 7.0 Urine Specific [place] 1.010 Urine Protein Negative mg/dL (NEG-TRACE) Urine Glucose (UA) Negative mg/dL (NEG) Urine Ketones (Stick) Negative mg/dL (NEG) Urine Blood Negative (NEG) Urine Nitrite Negative (NEG) Urine Bilirubin Negative (NEG) Urine Urobilinogen Dipstick 0.2 mg/dL (0.2 mg/dL) Urine Leukocyte Esterase Negative (NEG) Urine RBC 0 /HPF (0-2) Urine WBC 0 /HPF (0-4) Urine Bacteria Few /HPF (0-FEW) Sodium Level 138 mmol/L (136-145) Potassium Level 3.3 mmol/L (3.5-5.1) L Chloride Level 100 mmol/L (98-107) Carbon Dioxide Level 33 mmol/L (21-32) H Anion Gap 5 (6-14) L Blood Urea Nitrogen 27 mg/dL (7-20) H Creatinine 1.4 mg/dL (0.6-1.0) H Estimated GFR (Cockcroft-Gault) 36.6 BUN/Creatinine Ratio 19 (6-20) Glucose Level 141 mg/dL (70-99) H Calcium Level 9.7 mg/dL (8.5-10.1) Total Bilirubin 0.6 mg/dL (0.2-1.0) Aspartate Amino Transferase (AST) 19 U/L (15-37) Alanine Aminotransferase (ALT) 16 U/L (14-59) Alkaline Phosphatase 58 U/L (46-116) Total Protein 8.1 g/dL (6.4-8.2) Albumin 3.3 g/dL (3.4-5.0) L Albumin/Globulin Ratio 0.7 (1.0-1.7) L Lipase 54 U/L (73-393) L White Blood Count 7.7 x10^3/uL (4.0-11.0) Red Blood Count 3.85 x10^6/uL (3.50-5.40) Hemoglobin 11.9 g/dL (12.0-15.5) L Hematocrit 34.4 % (36.0-47.0) L Mean Corpuscular Volume 90 fL (79-100) Mean Corpuscular Hemoglobin 31 pg (25-35) Mean Corpuscular Hemoglobin Concent 35 g/dL (31-37) Red Cell Distribution Width 14.9 % (11.5-14.5) H Platelet Count 172 x10^3/uL (140-400) Neutrophils (%) (Auto) 68 % (31-73) Lymphocytes (%) (Auto) 21 % (24-48) L Monocytes (%) (Auto) 8 % (0-9) Eosinophils (%) (Auto) 2 % (0-3) Basophils (%) (Auto) 1 % (0-3) Neutrophils # (Auto) 5.2 x10^3uL (1.8-7.7) Lymphocytes # (Auto) 1.6 x10^3/uL (1.0-4.8) Monocytes # (Auto) 0.6 x10^3/uL (0.0-1.1) Eosinophils # (Auto) 0.1 x10^3/uL (0.0-0.7) Basophils # (Auto) 0.0 x10^3/uL (0.0-0.2) Laboratory Tests 06/13/18 19:40 Laboratory Tests 06/13/18 18:50 EKG EKG [] Radiology/Procedures Radiology/Procedures [] Course & Med Decision Making Course & Med Decision Making Pertinent Labs and Imaging studies reviewed. (See chart for details) This is a 78 year old female presenting to be evaluated for being "mean" patient was apparently treated for UTI couple weeks ago. Patient is alert oriented 3 in no distress. Labs are negative for any acute findings including urine. CT of the head is also negative. Spoke to patient and daughter. Daughter is okay taking patient home and they will follow up with the PCP. Dragon Disclaimer Dragon Disclaimer This electronic medical record was generated, in whole or in part, using a voice recognition dictation system. Departure Departure Impression: Primary Impression: General medical exam Disposition: 01 HOME, SELF-CARE Condition: STABLE Referrals: MERCED ALONZO MD (PCP) follow up in 1 week Patient Instructions: Medical Screening Exam Additional Instructions: You were evaluated in the emergency room, urine analysis is negative for any infection. Please follow-up with your own doctor in the next 1-2 weeks. JEREMI WEEKS APRN Jun 13, 2018 22:41
== END 2018-06-13 22:50 | disposition home or self-care (01) ==
LOC: ER 17:52
DX: Z00.00 Encounter for general adult medical examination without abnormal findings (principal); I48.91 Unspecified atrial fibrillation; J44.9 Chronic obstructive pulmonary disease, unspecified; E11.9 Type 2 diabetes mellitus without complications; E03.9 Hypothyroidism, unspecified; I10 Essential (primary) hypertension; G89.29 Other chronic pain; Z87.440 Personal history of urinary (tract) infections; Z90.710 Acquired absence of both cervix and uterus; Z98.890 Other specified postprocedural states; Z88.2 Allergy status to sulfonamides; Z88.1 Allergy status to other antibiotic agents; Z88.5 Allergy status to narcotic agent
CPT/HCPCS: 36415; 70450; 80053; 81001; 83690; 85025; 99284

== ENCOUNTER 2020-06-14 18:56 | Emergency (ER) | payer OTHER ==
[~2020-06-14] VITALS: Ht 162.6 cm; Wt 79.5 kg
[~2020-06-14 18:56] MED LIST changes: -DICL100G18 TP; +DICL100G54 TP; -MELA3TAB2 PO; +MELA3TAB4 PO; +MORP-16 PO; -MORP30TA3 PO; -MORP60TA PO; +MORP60TA60 PO; -OXYC15TA PO; +OXYC15TA3 PO; +OXYC5CAP PO
--- NOTE | 2020-06-14 19:49 | PHYS DOC ---
Past Medical History Past Medical History: A-Fib, Arthritis, COPD, Diabetes-Type II, Hypertension, Hypothyroid, Kidney Infection, UTI Additional Past Medical Histor: CHRONIC BACK PAIN Past Surgical History: Knee Replacement Additional Past Surgical Histo: hernia Smoking Status: Former Smoker Alcohol Use: None Drug Use: None Adult General Chief Complaint Chief Complaint: ALTERED MENTAL STATUS [facility] Patient is a 80 year old with an extensive past medical history which does include A. fib, COPD, hypertension, hypothyroid who is now presenting emergency department with altered mental status. Patient is accompanied by her daughter who is the primary formula weigher. Daughter states that over the last 2 days she has noticed that her mother has been increasingly agitated and appears to be slightly more somnolent than normal. She was the patient is having worsening bizarre behavior. Notes that the patient did have a fall where they did not believe she had her head but were not sure approximately 3 days ago. Also note the patient had urinary tract infection 2 months ago which she was treated for. No known fever, chills, recent sick contacts. Patient has not complained of any abdominal pain. No nausea vomiting or diarrhea Review of Systems Review of Systems Constitutional: Denies fever or chills [] Eyes: Denies change in visual acuity, redness, or eye pain [] HENT: Denies nasal congestion or sore throat [] Respiratory: Denies cough or shortness of breath [] Cardiovascular: No additional information not addressed in HPI [] GI: Denies abdominal pain, nausea, vomiting, bloody stools or diarrhea [] : Denies dysuria or hematuria [] Musculoskeletal: Denies back pain or joint pain [] Integument: Denies rash or skin lesions [] Neurologic: Denies headache, focal weakness or sensory changes [] Endocrine: Denies polyuria or polydipsia [] All other systems were reviewed and found to be within normal limits, except as documented in this note. Allergies Allergies Allergies Coded Allergies Type Severity Reaction Last Updated Verified Sulfa (Sulfonamide Antibiotics) Allergy Intermediate 05/08/18 Yes ciprofloxacin Allergy Intermediate 07/02/15 Yes codeine Allergy Intermediate 07/02/15 Yes Physical Exam Physical Exam Constitutional: Well developed, well nourished, no acute distress, non-toxic appearance. [] HENT: Normocephalic, atraumatic, bilateral external ears normal, oropharynx moist, no oral exudates, nose normal. [] Eyes: PERRLA, EOMI, conjunctiva normal, no discharge. [] Neck: Normal range of motion, no tenderness, supple, no stridor. [] Cardiovascular:Heart rate regular rhythm, no murmur [] Lungs & Thorax: Bilateral breath sounds clear to auscultation [] Abdomen: Bowel sounds normal, soft, no tenderness, no masses, no pulsatile masses. [] Skin: Warm, dry, no erythema, no rash. Old healing wound to R lower anterior mi Back: No tenderness, no CVA tenderness. [] Extremities: No tenderness, no cyanosis, no clubbing, ROM intact, no edema. [] Neurologic: Alert and oriented X 2, normal motor function, normal sensory function, no focal deficits noted. [] Psychologic: Affect normal, judgement altered, mood normal. [] Current Patient Data Vital Signs Vital Signs Date Time Temp Pulse Resp B/P (MAP) Pulse Ox O2 Delivery O2 Flow Rate FiO2 06/14/20 19:30 98.6 72 13 125/61 (82) 97 Room Air 98.6 Lab Values Laboratory Tests Test 06/14/20 19:40 06/14/20 19:50 White Blood Count 7.0 x10^3/uL (4.0-11.0) Red Blood Count 4.39 x10^6/uL (3.50-5.40) Hemoglobin 12.8 g/dL (12.0-15.5) Hematocrit 38.8 % (36.0-47.0) Mean Corpuscular Volume 88 fL (79-100) Mean Corpuscular Hemoglobin 29 pg (25-35) Mean Corpuscular Hemoglobin Concent 33 g/dL (31-37) Red Cell Distribution Width 14.9 % (11.5-14.5) H Platelet Count 152 x10^3/uL (140-400) Neutrophils (%) (Auto) 60 % (31-73) Lymphocytes (%) (Auto) 28 % (24-48) Monocytes (%) (Auto) 9 % (0-9) Eosinophils (%) (Auto) 2 % (0-3) Basophils (%) (Auto) 1 % (0-3) Neutrophils # (Auto) 4.2 x10^3/uL (1.8-7.7) Lymphocytes # (Auto) 2.0 x10^3/uL (1.0-4.8) Monocytes # (Auto) 0.6 x10^3/uL (0.0-1.1) Eosinophils # (Auto) 0.2 x10^3/uL (0.0-0.7) Basophils # (Auto) 0.1 x10^3/uL (0.0-0.2) Prothrombin Time 16.5 SEC (11.7-14.0) H Prothrombin Time INR 1.4 (0.8-1.1) H Activated Partial Thromboplast Time 36 SEC (24-38) Sodium Level 144 mmol/L (136-145) Potassium Level 3.9 mmol/L (3.5-5.1) Chloride Level 105 mmol/L (98-107) Carbon Dioxide Level 29 mmol/L (21-32) Anion Gap 10 (6-14) Blood Urea Nitrogen 17 mg/dL (7-20) Creatinine 1.1 mg/dL (0.6-1.0) H Estimated GFR (Cockcroft-Gault) 48.0 BUN/Creatinine Ratio 15 (6-20) Glucose Level 137 mg/dL (70-99) H Calcium Level 9.4 mg/dL (8.5-10.1) Magnesium Level 2.0 mg/dL (1.8-2.4) Total Bilirubin 1.1 mg/dL (0.2-1.0) H Aspartate Amino Transferase (AST) 23 U/L (15-37) Alanine Aminotransferase (ALT) 24 U/L (14-59) Alkaline Phosphatase 65 U/L (46-116) Creatine Kinase 316 U/L (26-192) H Total Protein 7.8 g/dL (6.4-8.2) Albumin 3.7 g/dL (3.4-5.0) Albumin/Globulin Ratio 0.9 (1.0-1.7) L Urine Collection Type U cath Urine Color Yellow Urine Clarity Clear Urine pH 8.0 (<5.0-8.0) Urine Specific [place] 1.015 (1.000-1.030) Urine Protein Negative mg/dL (NEG-TRACE) Urine Glucose (UA) Negative mg/dL (NEG) Urine Ketones (Stick) Negative mg/dL (NEG) Urine Blood Negative (NEG) Urine Nitrite Negative (NEG) Urine Bilirubin Negative (NEG) Urine Urobilinogen Dipstick 1.0 mg/dL (0.2 mg/dL) Urine Leukocyte Esterase Small (NEG) Urine RBC 1-2 /HPF (0-2) Urine WBC 5-10 /HPF (0-4) Urine Squamous Epithelial Cells Few /LPF Urine Amorphous Sediment Present /HPF Urine Bacteria 0 /HPF (0-FEW) Urine Mucus Slight /LPF Urine Trichomonas Present Laboratory Tests 06/14/20 19:40 Laboratory Tests 06/14/20 19:40 EKG EKG [] Radiology/Procedures Radiology/Procedures [] Course & Med Decision Making Course & Med Decision Making Pertinent Labs and Imaging studies reviewed. (See chart for details) 80F presenting with what appears to be worsening altered mental status over the last 48 hours. Primary concern at this time would be for intracranial hemorrhage following the patient's fall but this is less likely given the patient's lack of localizing neurologic findings. There is also significant con sideration for sepsis or urinary tract infection which is causing the patient's altered mental status. At this time will obtain a CT noncontrast of the head to make sure there is no intracranial hemorrhage and will obtain work-up to rule out any infectious etiology. 2200 -labs and CT scan without any significant abnormality. No evidence of intracranial hemorrhage. Patient behavior appears to be the same. At this time I think it secondary to dementia. I had an extensive conversation with the daughter feels comfortable taking the patient home and will have her see her primary care physician on Tuesday. I spoken with the patient and her caregivers. I explained the patient's condition, diagnoses and treatment plan based on the information available to me at this time. I have answered the patient and her caregiver's questions and addressed any concerns. The patient and her caregivers have a good understanding of patient's diagnosis, condition and treatment plan as can be expected at this point. Vital signs have been stable. Patient's condition is stable and appropriate for discharge from the emergency department. Patient will pursue further outpatient evaluation with primary care physician or other designated or consulting physician as outlined in the discharge instructions. The patient and/or caregivers are agreeable to this plan of care and follow-up instructions have been explained in detail. The patient and/or caregivers have received these instructions in written form and have expressed an understanding of the discharge instructions. The patient and/or caregivers are aware that any significant change of condition or worsening of symptoms should prompt immediate return to this or the closest emergency department or call to 911. [place] Disclaimer Dragon Disclaimer This electronic medical record was generated, in whole or in part, using a voice recognition dictation system. Departure Departure Impression: Primary Impression: Chronic dementia Disposition: 01 DC HOME SELF CARE/HOMELESS Condition: GOOD Referrals: MERCED ALONZO MD (PCP) Patient Instructions: Dementia Additional Instructions: EMERGENCY DEPARTMENT GENERAL DISCHARGE INSTRUCTIONS Thank you for coming to [facility] Emergency Department (ED) today and trusting us with you care. We trust that you had a positive experience in our Emergency Department. If you wish to speak to the department management, you may call the Director at [phone]. YOUR FOLLOW UP INSTRUCTIONS ARE FOLLOWS: 1. Do you have a private Doctor? If you do not have a private doctor, please ask for a resource list of physicians or clinics that may be able to assist you with follow up care. 2. The Emergency Physicain has interpreted your x-rays. The X-Ray specialist will also review them. If there is a change in the findings, you will be notified in 48 hours when at all possible. 3. A lab test or culture has been done, your results will be reviewed and you will be notified if you need a change in treatment. ADDITIONAL INSTRUCTIONS AND INFORMATION: 1. Your care today has been supervised by a physician who is specially trained in emergency care. Many problems require more than one evaluation for a complete diagnosis and treatment. We recommend that you schedule your follow up appointment as recommended to ensure complete treatment of you illness or injury. If you are unable to obtain follow up care and continue to have a problem, or if your condition worsens, we recommend that you return to the ED. 2. We are not able to safely determine your condition over the phone nor are we able to give sound medical advice over the phone. For these safety reasons, if you call for medical advice we will ask you to come to the ED for further evaluation. 3. If you have any questions regarding these discharge instructions please call the ED at [phone]. SAFETY INFORMATION: In the interest of safety, wellness, and injury prevention; we encourage you to wear your sealbelt, if you smoke; quite smoking, and we encourage family to use a protective helmet for bicycling and other sporting events that present an increased risk for head injury. IF YOUR SYMPTOMS WORSEN OR NEW SYMPTOMS DEVELOP, OR YOU HAVE CONCERNS ABOUT YOUR CONDITION; OR IF YOUR CONDITION WORSENS WHILE YOU ARE WAITING FOR YOUR FOLLOW UP APPOINTMENT; EITHER CONTACT YOUR PRIMARY CARE DOCTOR, THE PHYSICIAN WHOSE NAME AND NUMBER YOU WERE GIVEN, OR RETURN TO THE ED IMMEDIATELY. NICOLASA CHISHOLM MD Jun 14, 2020 19:49
[2020-06-14 19:54] LABS: BASO # 0.1 x10^3/uL (0.0-0.2); BASO % 1 % (0-3); EOS # 0.2 x10^3/uL (0.0-0.7); EOS % 2 % (0-3); HEMATOCRIT 38.8 % (36.0-47.0); HEMOGLOBIN 12.8 g/dL (12.0-15.5); LYMPH % 28 % (24-48); MEAN CORPUSCULAR HEMOGLOBIN 29 pg (25-35); MEAN CORPUSCULAR HGB CONC 33 g/dL (31-37); MEAN CORPUSCULAR VOLUME 88 fL (79-100); MONO # 0.6 x10^3/uL (0.0-1.1); MONO % 9 % (0-9); NEUT # 4.2 x10^3/uL (1.8-7.7); NEUT % 60 % (31-73); PLATELET COUNT 152 x10^3/uL (140-400); RED BLOOD COUNT 4.39 x10^6/uL (3.50-5.40); RED CELL DISTRIBUTION WIDTH 14.9 % (11.5-14.5)
[2020-06-14 19:58] LABS: BILIRUBIN,URINE NEGATIVE (NEG); CLARITY,URINE CLEAR; COLOR,URINE YELLOW; NITRITE,URINE NEGATIVE (NEG); PROTEIN,URINE NEGATIVE (NEG-TRACE)
[2020-06-14 20:03] LABS: PROTHROMBIN TIME PATIENT 16.5 SEC (11.7-14.0)
[2020-06-14 20:06] LABS: CALCIUM 9.4 mg/dL (8.5-10.1); CREATININE 1.1 mg/dL (0.6-1.0); POTASSIUM 3.9 mmol/L (3.5-5.1)
[2020-06-14 20:09] LABS: AMORPHOUS SEDIMENT,UR PRESENT /HPF; BACTERIA,URINE 0 /HPF (0-FEW); TRICHOMONAS,URINE PRESENT
[2020-06-14 20:11] LABS: ALBUMIN 3.7 g/dL (3.4-5.0); ALBUMIN/GLOBULIN RATIO 0.9 (1.0-1.7); TOTAL BILIRUBIN 1.1 mg/dL (0.2-1.0); TOTAL PROTEIN 7.8 g/dL (6.4-8.2)
--- NOTE | 2020-06-14 20:23 | RAD ---
Exam: Chest one view INDICATION: Altered mental status TECHNIQUE: Frontal view of the chest Comparisons: None FINDINGS: The cardiomediastinal silhouette and pulmonary vessels are within normal limits. The lung and pleural spaces are clear. IMPRESSION: No acute cardiopulmonary process. Electronically signed by: Cleopatra Mckeon MD (06/14/2020 8:21 PM) PAUL
--- NOTE | 2020-06-14 21:09 | RAD ---
Exam: CT head INDICATION: Trauma TECHNIQUE: Sequential axial images through the head were obtained without the administration of IV co ntrast. Comparisons: None FINDINGS: No focal parenchymal lesion or hemorrhage is identified. There is no midline shift or sulcal effaceme nt. Patchy hypodensity in the periventricular white matter, similar prior exam. No acute vascular territ ory infarction is identified. Jones-white distinction is preserved. The ventricular system is within normal limits without compression hydrocephalus. The basal cisterns are well maintained. The visualized portions of the paranasal sinuses and mastoid air cells are well-pneumatized. No acute fractures. IMPRESSION: No acute intracranial abnormality. Exposure: One or more of the following in the visualized dose reduction techniques were utilized for this examination: 1. Automated exposure control 2. Adjustment of the MA and/or KV according to patient size Use of iterative of reconstructive technique Electronically signed by: Cleopatra Mckeon MD (06/14/2020 9:07 PM) [facility]
[2020-06-14 22:04] VITALS: BP 142/103
--- NOTE | 2020-06-16 10:11 | EKG ---
[facility] [address] [place] [address] Test Date: 2020-06-14 Test Time: 20:38:06 Pat Name: ARYAN FLOREZ Department: Room: Gender: F Casino [employer]er: : 1940 Requested By: NICOLASA CHISHOLM Order Number: [id number] Reading MD: Measurements Intervals [place] Rate: 75 P: 0 VT: 228 QRS: -14 QRSD: 78 T: 32 QT: 404 QTc: 454 Interpretive Statements SINUS RHYTHM PROLONGED VT INTERVAL LEFTWARD AXIS T ABNORMALITY IN HIGH LATERAL LEADS ABNORMAL ECG RI6.01 No previous ECG available for comparison
== END 2020-06-14 22:20 | disposition home or self-care (01) ==
LOC: ER 18:56
DX: F03.90 Unspecified dementia, unspecified severity, without behavioral disturbance, psychotic disturbance, mood disturbance, and anxiety (principal); I48.91 Unspecified atrial fibrillation; J44.9 Chronic obstructive pulmonary disease, unspecified; E11.9 Type 2 diabetes mellitus without complications; I10 Essential (primary) hypertension; E03.9 Hypothyroidism, unspecified; G89.29 Other chronic pain; Z87.891 Personal history of nicotine dependence; Z88.1 Allergy status to other antibiotic agents; Z88.2 Allergy status to sulfonamides; Z88.5 Allergy status to narcotic agent
CPT/HCPCS: 36415; 70450; 71045; 80053; 81001; 82550; 83735; 85025; 85610; 85730; 93005; 99285-25